=== PATIENT | male | born 1965 | race Caucasian/White ===

== ENCOUNTER 2023-05-24 09:33 | Outpatient (OUT) | payer OTHER, SELFPAY ==
[2023-05-24 10:16] LABS: Basophils Percent Auto 0.6 % (0.2-2.0); Eosinophils Absolute Auto 0.3 10^3/uL (0.0-0.7); Eosinophils Percent Auto 3.8 % (0.9-7.0); Hematocrit 43.4 % (42.0-54.0); Immature Granulocytes Abs Auto 0.03 10^3/uL (0.00-0.03); Immature Granulocytes Pct Auto 0.4 % (0.0-0.5); Lymphocytes Percent Auto 29.1 % (20.5-60.0); Mean Corpuscular HGB Conc 34.6 g/dL (29.9-35.2); Mean Corpuscular Hemoglobin 31.2 pg (25.9-34.0); Mean Corpuscular Volume 90.2 fL (80.0-94.0); Mean Platelet Volume 9.6 fL (9.5-13.5); Monocytes Absolute Auto 0.6 10^3/uL (0.3-0.8); Monocytes Percent Auto 8.7 % (1.7-12.0); Neutrophils Absolute Auto 3.9 10^3/uL (1.4-6.5); Neutrophils Percent Auto 57.4 % (43.0-75.0); Platelet Count 228 10^3/uL (150-450); Red Blood Count 4.81 10^6/uL (4.70-6.10); Red Cell Distribution Width 11.9 % (11.0-15.0); White Blood Count 6.8 10^3/uL (4.0-11.0)
[2023-05-24 11:11] LABS: Alanine Aminotransferase 31 U/L (16-63); Albumin Globulin Ratio 1.1; Albumin Level 3.8 g/dL (3.4-5.0); Alkaline Phosphatase 58 U/L (46-116); Anion Gap 10.1; Aspartate Amino Transferase 22 U/L (15-37); BUN Creatinine Ratio 16.2; Bilirubin Total 0.8 mg/dL (0.2-1.0); Calcium 8.8 mg/dL (8.5-10.1); Carbon Dioxide 30.1 mmol/L (21.0-32.0); Chloride 102 mmol/L (98-107); Chol HDL Ratio 2.1; Cholesterol 175 mg/dL (<=200); Estimated GFR (African America >60 (>=60); Estimated GFR (Non-African Ame >60 (>=60); Free T3 2.88 pg/mL (2.18-3.98); Globulin 3.5 g/dL; Glucose 101 mg/dL (74-106); HDL Cholesterol 82 mg/dL (40-60); Potassium 4.2 mmol/L (3.5-5.1); Sodium 138 mmol/L (136-145); Thyroid Stimulating Hormone 2.426 uIU/mL (0.358-3.740); Total Protein 7.3 g/dL (6.4-8.2); Triglycerides 58 mg/dL (<=150); VLDL CHOLESTEROL 11.6 mg/dL
[2023-05-24 11:16] LABS: Prostate Specific Antigen Scrn 1.07 ng/mL (<=4.00)
[2023-05-24 11:19] LABS: Estimated Average Glucose 105 mg/dL; Glycohemoglobin A1C 5.3 % (4.5-6.2)
== END 2023-05-24 09:34 | disposition home or self-care (01) ==
LOC: LAB 09:36
PROVIDERS: PCP Family Medicine; Visit Provider Family Medicine
DX: Z00.00 Encounter for general adult medical examination without abnormal findings (principal)
CPT/HCPCS: 36415; 80053; 80061; 83036; 84436; 84443; 84481; 85025; G0103

== ENCOUNTER 2024-05-05 20:42 | Outpatient (OUT) | payer OTHER, SELFPAY ==
--- OUTSIDE RECORDS SUMMARY | 2024-05-05 20:45 | XMS_ITS | CCD ---
Author Organization [facility] Care Team Providers Care Staffing Coordinator Name Role Phone Vipul Hein Attending Unavailable CHRISTEN DUBOSE Consulting Unava ilable Seamus Cardenas Primary Care Unavailable Seamus Cardenas Primary Care Provider SEAMUS CARDENAS Referring Unavailable SEAMUS CARDENAS Primary Care Unavailable DR SEAMUS CARDENAS Primary Care Unavailable RONALD, DR WAY Admitting Unavailable RONALD, DR WAY Attending Unavailable RONALD, DR WAY Consulting Unavailable Aditi García Consulting Unavailable DR SEAMUS CARDENAS Primary Care Unavailable RONALD, DR WAY Admitting Unavailable RONALD, DR WAY Attending Unavailable RONALD, DR WAY Consulting Unavailable Allergies Allergy Classification Reported Allergen(s) Allergy Type Date of Onset Reaction(s) Facility (1 source) Penicillin Drug Allergy [facility] Repository Problems Active Problems Problem Classification Problem Date Documented Da te Episodic/Chronic Other screening for suspected conditions (not mental disorders or infectious disease) (1 source) Encounter for screening for malignant neoplasm of prostate; Translations: [ENC SCREEN MALIG NEOPLASM PROSTATE] Onset: 09-06-2021 Episodic Past or Other Problems Problem Classification Problem Date Documented Da te Episodic/Chronic Superficial injury; contusion (4 sources) Contusion of left upper arm, initial encounter; Translations: [CONTUSION LEFT UPPER ARM INITIAL] Onset: 04-26-2021 Episodic Results Test Name Value Interpretation Reference Range Facility INSULINon 09-01-2021 Insulin 4.5 uIU/mL Normal 2.6-24.9 [facility] Comment on above: Performed By: #### I NSULIN #### [facility] [address] [address] [address] Pamella Barrientos CBC AUTO DIFFon 08-31-2021 BASO # 0.1 103/ul Normal 0.0-0.1 [facility] Comment on above: Performed By: #### C BC #### [facility] [address] [address] [address] Pamella Barrientos Basophils/100 WBC (Bld) 0.8 % Normal 0.2-2.0 [facility] Comment on above: Performed By: #### C BC #### [facility] [address] [address] [address] Pamella Barrientos EO # 0.1 103/ul Normal 0.0-0.[address] [facility] Comment on above: Performed By: #### C BC #### [facility] [address] [address] [address] Pamella Barrientos Eosinophils/100 WBC (Bld) 2.3 % Normal 0.9-7.0 [facility] Comment on above: Performed By: #### C BC #### [facility] [address] [place] [address] Dr. Pamella Barrientos Erythrocyte distribution width (RBC) [Ratio] 11.8 % Normal 11.0-15.0 [facility] Comment on above: Performed By: #### C BC #### [facility] [address] [place] [address] Dr. Pamella Barrientos Hematocrit (Bld) [Volume fraction] 42.7 % Normal 42.0-54.0 [facility] Comment on above: Performed By: #### C BC #### [facility] [address] [place] [address] Dr. Pamella Barrientos Hemoglobin (Bld) [Mass/Vol] 14.7 g/dL Normal 14.0-18.0 [facility] Comment on above: Performed By: #### C BC #### [facility] [address] [place] [address] Dr. Pamella Barrientos IG # 0.03 10e3/ul Normal 0.00-0.03 [facility] Comment on above: Performed By: #### C BC #### [facility] [address] [place] [address] Dr. Pamella Barrientos IG % 0.5 % Normal 0.0-0.5 [facility] Comment on above: Performed By: #### C BC #### [facility] [address] [place] [address] Dr. Pamella Barrientos LYMPH # 2.1 103/ul Normal 1.2-3.8 [facility] Comment on above: Performed By: #### C BC #### [facility] [address] [place] [address] Dr. Pamella Barrientos Lymphocytes/100 WBC (Bld) 34.1 % Normal 20.5-60.0 [facility] Comment on above: Performed By: #### C BC #### [facility] [address] [place] [address] Dr. Pamella aBrrientos MANUAL DIFF REQ NO Normal [facility] Comment on above: Performed By: #### C BC #### [facility] [address] [place] [address] Dr. Pamella Barrientos MCH (RBC) [Entitic mass] 30.7 pg Normal 25.9-34.0 [facility] Comment on above: Performed By: #### C BC #### [facility] [address] [place] [address] Dr. Pamella Barrientos MCHC (RBC) [Mass/Vol] 34.4 g/dL Normal 29.9-35.2 [facility] Comment on above: Performed By: #### C BC #### [facility] [address] [place] [address] Dr. Pamella Barrientos MCV (RBC) [Entitic vol] 89.1 fL Normal 80.0-94.0 [facility] Comment on above: Performed By: #### C BC #### [facility] [address] [place] [address] Dr. Pamella Barrientos MONO # 0.5 103/ul Normal 0.3-0.8 [facility] Comment on above: Performed By: #### C BC #### [facility] [address] [place] [address] Dr. Pamella Barrientos Monocytes/100 WBC (Bld) 8.3 % Normal 1.7-12.0 [facility] Comment on above: Performed By: #### C BC #### [facility] [address] [address] [address] Pamella Barrientos NEUT # 3.2 103/ul Normal 1.4-6.5 [facility] Comment on above: Performed By: #### C BC #### [facility] [address] [address] [address] Pamella Barrientos Neutrophils/100 WBC (Bld) 54.0 % Normal 43.0-75.0 [facility] Comment on above: Performed By: #### C BC #### [facility] [address] [address] [address] Pamella Barrientos Platelet mean volume (Bld) [Entitic vol] 9.4 fL Critically low 9.5-13.5 [facility] Comment on above: Performed By: #### C BC #### [facility] [address] [place] [address] Dr. Pamella Barrientos PLT 180 103/ul Normal 150-[address] [facility] Comment on above: Performed By: #### C BC #### [facility] [address] [place] [address] Dr. Pamella Barrientos RBC 4.79 106/ul Normal 4.70-6.10 [facility] Comment on above: Performed By: #### C BC #### [facility] [address] [place] [address] Dr. Pamlela Barrientos WBC 6.0 103/ul Normal 4.0-11.0 [facility] Comment on above: Performed By: #### C BC #### [facility] [address] [place] [address] Dr. Pamella Barrientos GLYCOHEMOGLOBIN A1Con 2021 ADA RECOMMENDATION SEE BELOW Normal [facility] Comment on above: Result Comment: ADA RECOMMENDED LIMIT 4.0 - 6.0 ADA THERAPEUTIC TARGET < 7.0 ACTION SUGGESTED > 7.0 Performed By: #### A 1C #### [facility] [address] [place] [address] Dr. Pamella Barrientos Glucose [Mass/Vol] 108 mg/dL Normal [facility] Comment on above: Performed By: #### A 1C #### [facility] [address] [address] [address] Pamella Barrientos HbA1c (Bld) [Mass fraction] 5.4 % Normal 4.5-6.2 [facility] Comment on above: Performed By: #### A 1C #### [facility] [address] [address] [address] Pamella Barrientos LIPID PROFILEon 08-31-2021 CHOL-HDL RATIO NORM SEE BELOW Normal [facility] Comment on above: Result Comment: 3.3 - 4.4 LOW RISK 4.4 - 7.1 AVERAGE RISK 7.1 - 11.0 MODERATE RISK >11.0 HIGH RISK Performed By: #### L IPID, CMP #### [facility] [address] [address] [address] Pamella Barrientos Cholesterol [Mass/Vol] 166 mg/dL Normal <=200 [facility] Comment on above: Performed By: #### L IPID, CMP #### [facility] [address] [address] [address] Pamella Barrientos Cholesterol in HDL [Mass/Vol] 83 mg/dL Critically high 40-60 [facility] Comment on above: Performed By: #### L IPID, CMP #### [facility] [address] [address] [address] Pamella Barrientos Cholesterol in LDL [Mass/Vol] 74.4 mg/dL Normal [facility] Comment on above: Performed By: #### L IPID, CMP #### [facility] [address] [address] [address] Pamella Barrientos Cholesterol.total/Ch olesterol in HDL [Mass ratio] 2.0 {ratio} Normal [facility] Comment on above: Performed By: #### L IPID, CMP #### [facility] [address] [address] [address] Pamella Barrientos HDL NORMAL > or = 60 mg/dl - LO W CARDIOVASCULAR RISK <40 mg/dl - HIGH CARDIOVASCULAR RISK Normal [facility] Comment on above: Performed By: #### L IPID, CMP #### [facility] [address] [address] [address] Pamella Barrientos LDL CALC NORMAL SEE BELOW Normal [facility] Comment on above: Result Comment: <100 mg/dl OPTIMAL 100 - 129 mg/dl NEAR OR ABOVE OPTIMAL 130 - 159 mg/dl BORDERLINE HIGH 160 - 189 mg/dl HIGH >190 mg/dl VERY HIGH Performed By: #### L IPID, CMP #### [facility] [address] [address] [address] Pamella Barrientos Triglyceride [Mass/Vol] 43 mg/dL Normal <=150 [facility] Comment on above: Performed By: #### L IPID, CMP #### [facility] [address] [address] [address] Pamella Barrientos VLDL CALC 8.6 mg/dL Normal [facility] Comment on above: Performed By: #### L IPID, CMP #### [facility] [address] [place] [address] Dr. Pamella Barrientos PROF 14(COMP METB)on 022 Albumin [Mass/Vol] 4.0 g/dL Normal 3.4-5.0 [facility] Comment on above: Performed By: #### L IPID, CMP #### [facility] [address] [place] [address] Dr. Pamella Barrientos Albumin/Globulin [Mass ratio] 1.3 {ratio} Normal [facility] Comment on above: Performed By: #### L IPID, CMP #### [facility] [address] [place] [address] Dr. Pamella Barrientos ALP [Catalytic activity/Vol] 60 U/L Normal 46-[address] [facility] Comment on above: Performed By: #### L IPID, CMP #### [facility] [address] [address] [address] Pamella Barrientos ALT [Catalytic activity/Vol] 38 U/L Normal 16-63 [facility] Comment on above: Performed By: #### L IPID, CMP #### [facility] [address] [place] [address] Dr. Pamella Barrientos Anion gap [Moles/Vol] 12.8 mmol/L Normal [facility] Comment on above: Performed By: #### L IPID, CMP #### [facility] [address] [address] [address] Pamella Barrientos AST [Catalytic activity/Vol] 20 U/L Normal 15-37 [facility] Comment on above: Performed By: #### L IPID, CMP #### [facility] [address] [place] [address] Dr. Pamella Barrientos Bilirubin [Mass/Vol] 0.7 mg/dL Normal 0.2-1.0 [facility] Comment on above: Performed By: #### L IPID, CMP #### [facility] [address] [place] [address] Dr. Pamella Barrientos Calcium [Mass/Vol] 8.8 mg/dL Normal 8.5-10.1 [facility] Comment on above: Performed By: #### L IPID, CMP #### [facility] [address] [place] [address] Dr. Pamella Barrientos Chloride [Moles/Vol] 102 mmol/L Normal 98-107 [facility] Comment on above: Performed By: #### L IPID, CMP #### [facility] [address] [place] [address] Dr. Pamella Barrientos CO2 [Moles/Vol] 26.6 mmol/L Normal 21.0-32.0 [facility] Comment on above: Performed By: #### L IPID, CMP #### [facility] [address] [place] [address] Dr. Pamella Barrientos Creatinine [Mass/Vol] 0.97 mg/dL Normal 0.70-1.30 [facility] Comment on above: Performed By: #### L IPID, CMP #### [facility] [address] [place] [address] Dr. Pamella Barrientos EGFR-AF KENYAN >60 Normal >=60 [facility] Comment on above: Performed By: #### L IPID, CMP #### [facility] [address] [place] [address] Dr. Pamella Barrientos EGFR-NON AF KENYAN >60 Normal >=60 [facility] Comment on above: Performed By: #### L IPID, CMP #### [facility] [address] [address] [address] Pamella Barrientos Globulin (S) [Mass/Vol] 3.1 g/dL Normal [facility] Comment on above: Performed By: #### L IPID, CMP #### [facility] [address] [place] [address] Dr. Pamella Barrientos Glucose [Mass/Vol] 98 mg/dL Normal 74-106 [facility] Comment on above: Performed By: #### L IPID, CMP #### [facility] [address] [place] [address] Dr. Pamella Barrientos Potassium [Moles/Vol] 4.4 mmol/L Normal 3.5-5.1 [facility] Comment on above: Performed By: #### L IPID, CMP #### [facility] [address] [place] [address] Dr. Pamella Barrientos Protein [Mass/Vol] 7.1 g/dL Normal 6.4-8.2 [facility] Comment on above: Performed By: #### L IPID, CMP #### [facility] [address] [place] [address] Dr. Pamella Barrientos Sodium [Moles/Vol] 137 mmol/L Normal 136-145 [facility] Comment on above: Performed By: #### L IPID, CMP #### [facility] [address] [place] [address] Dr. Pamella Barrientos Urea nitrogen [Mass/Vol] 20.0 mg/dL Critically high 7.0-18.0 [facility] Comment on above: Performed By: #### L IPID, CMP #### [facility] [address] [place] [address] Dr. Pamella Barrientos Urea nitrogen/Creatinine [Mass ratio] 20.6 mg/mg Normal [facility] Comment on above: Performed By: #### L IPID, CMP #### [facility] [address] [place] [address] Dr. Pamella Barrientos XR WRIST LT MIN 3 Von 2021 XR WRIST LT MIN 3 V EXAM: XR FOREARM LT 2 VIEWS, XR HAND LT MIN 3V, XR WRIST LT MIN 3 V HISTORY: Contusion of left upper arm COMPARISON: None. TECHNIQUE: 2 views of the left forearm, 3 views of the left hand and 3 views of the left wrist were obtained. FINDINGS: LEFT FOREARM: AP and lateral views of the left forearm were acquired. The bones are intact. There is no evidence of acute fracture or subluxation. LEFT WRIST: There is joint space narrowing with marginal spurring at the triscaphe joint. No evidence of acute fracture or subluxation is noted. LEFT HAND: A BB marker is placed at the posterior medial aspect of the third and fourth fingers slightly proximal to the proximal interphalangeal joints. Deep to the marker I see mild soft tissue swelling. I do not see a radiopaque density other than the marker. No evidence of acute fracture or subluxation. IMPRESSION: 1. At the area of interest in the third and fourth fingers proximal to the proximal interphalangeal joints, no evidence of radiopaque foreign bodies other than the BB markers. No evidence of acute fracture or subluxation. 2. 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 Mild osteoarthritis at the interphalangeal joints of the fingers. Electronically authenticated by: ADITI GARCÍA Date: 2021-04-26 14:24 Normal [facility] [id number] 02-24-2020 SARS-CoV-2 Not Detected Normal Not Detected [facility] Comment on above: Result Comment: (NOT E) This nucleic acid amplification test was developed and its performance characteristics determined by [employer]. Nucleic acid amplification tests include PCR and TMA. This test has not been FDA cleared or approved. This test has been authorized by FDA under an Emergency Use Authorization (EUA). This test is only authorized for the duration of time the declaration that circumstances exist justifying the authorization of the emergency use of in vitro diagnostic tests for detection of SARS-CoV-2 virus and/or diagnosis of COVID-19 infection under section 564(b)(1) of the Act, 21 U.S.C. 360bbb-3(b) (1), unless the authorization is terminated or revoked sooner. When diagnostic testing is negative, the possibility of a false negative result should be considered in the context of a patient's recent exposures and the presence of clinical signs and symptoms consistent with COVID-19. An individual without symptoms of COVID- 19 and who is not shedding SARS-CoV-2 virus would expect to have a negative (not detected) result in this assay. Performed At: [facility] [address] [place] [id number] Seamus Garcia MD Ph:[phone] Performed By: #### A COV #### [facility] [address] [place] [address] Tax Collector: Farzad Soto MD MRI Shoulder w/o Contrast Me yeny 02-25-2019 MRI Shoulder w/o Contrast Right EXAM: MRI Shoulder w/o Contrast Right HISTORY: Right shoulder pain and muscle strain. COMPARISON: None. TECHNIQUE: Multiplanar and multisequence imaging of the right shoulder was performed without contrast. FINDINGS: There is moderate degenerative change of the acromioclavicular joint manifested by joint space narrowing, marginal osteophytes and capsular hypertrophy. There is a type II acromion. A small amount of subacromial and subdeltoid fluid is present. There is thickening and heterogeneous intermediate signal of the supraspinatus consistent with severe tendinopathy. A superimposed moderate grade partial thickness bursal sided tear involves the distal supraspinatus anteriorly at the insertion. The tear measures 7 mm in AP and transverse dimensions and involves approximately half of the width of the tendon. There is also articular sided fraying and a superimposed low to moderate grade partial thickness articular sided tear of the supraspinatus tracking distally from the level of the lateral margin of the acromion. This tear measures approximately 10 mm in AP and transverse dimensions. There is mild tendinopathy of the infraspinatus and subscapularis tendons with no additional rotator cuff tear. The long head of the biceps tendon is normally positioned in the bicipital groove. The biceps anchor is intact. There is intermediate signal and mild tendinopathy of the intra-articular portion of the biceps tendon. There appears to be a subtle tear of the posterior superior labrum. No paralabral cyst is evident. The glenohumeral alignment is anatomic. IMPRESSION: 1. There is severe tendinopathy of the supraspinatus with a moderate grade partial thickness bursal sided tear of the distal supraspinatus anteriorly measuring 7 mm in AP and transverse dimensions. 2. There is articular sided fraying and a superimposed low to moderate grade partial thickness articular sided tear of the supraspinatus tracking distally from the level of the acromion measuring approximately 10 mm in AP and transverse dimensions. 3. There is mild tendinopathy of the infraspinatus and subscapularis tendons with no additional rotator cuff tear. 4. Moderate degenerative change involves the acromioclavicular joint. 5. A small amount of subacromial and subdeltoid fluid is consistent with mild bursitis. 6. There is a small tear of the posterior superior labrum with no paralabral cyst. Final Dictated by: Lonny Hadley MD Dictated DT/TM: 02/25/2019 7:16 am Signed by: Lonny Hadley MD Signed (Electronic Signature): 02/25/2019 7:55 am Transcribed DT/TM: 02/25/2019 7:51 (If Report Is Signed, Electronically Signed in Other Vendor System) Normal [facility] Encounters Encounter Date Encounter Type Care Provider Facility Start: 09-06-2021 Encounter for genera l adult medical examination without abnormal findings DR SEAMUS CARDENAS [facility] Start: 08-31-2021 End: 09-01-[address] SEAMUS CARDENAS Facility:[facility] Start: 08-31-2021 End: 09-01-2021 Encounter for general adult medical examination without abnormal findings DR SEAMUS CARDENAS Facility:[facility] Start: 04-26-2021 End: 04-27-[address] SEAMUS CARDENAS Facility:[facility] Start: 02-21-2020 End: 02-22-2020 Patient encounter procedure SEAMUS CARDENAS [facility] Start: 02-21-2020 End: 02-21-2020 Subsequent hospital visit by physician Rey [facility] Scre[facility] Comment on above: Arrived Start: 02-24-2019 End: 02-25-2019 Patient encounter procedure Vipul Hein Facility:[facility] Procedures Date Procedure Procedure Detail Performing Clinician Start: 08-31-[address] BESSIE CARDENAS Comment on above: Performed By: #### P [facility] #### [facility] [address] [address] [address] Pamella Barrientos Start: 02-21-2020 COVID-19 AMBULATORY SCOTT BALBINA CARDENAS Plan of Treatment Date Care Activity Detail Author Start: 12-14-2019 Influenza vaccination Flu vaccine (# 1) [place], [place] Start: 2016 Screening for malign ant neoplasm of colon Colon cancer screen colonoscopy [place], [place] Start: 2016 Shingles Vaccine (1 of 2) Shingles Vaccine (1 of 2) [place] Start: 2006 Lipid panel Lipid screen [place], [place] Start: 1985 DTaP/Tdap/Td vaccine (1 - Tdap) DTaP/Tdap/Td vaccine (1 - Tdap) [place], [place] Start: 1981 HIV screening HIV screen [place], [place] End: 02-21-2020 Covid-19 Ambulatory Covid-19 Ambulatory Lab Routine Once for 1 Occurrences starting 02/21/2020 until 02/21/2020 [place] Comment on above: Once for 1 Occurrenc es starting 02/21/2020 until 02/21/2020 Covid-19 Ambulatory Covid-19 Amb ulatory Lab Routine 02/21/2020 3:32 PM EST [place] Payers Date Payer Category Payer Private Health Insurance 2014 Private Health Insurance [id number] 1966 Unknown [id number] 1966 Unknown [id number] 1966 Unknown [id number] 1966 Unknown [id number] 1959 Unknown [id number] Social History Date Type Detail Facility Tobacco smoking status NHIS Unknown if ev er smoked [facility] Sex Assigned At Not on file [facility] Summary Purpose Family History No Family History Records FoundNo Family History Records FoundNo Family History Records Found Advance Directives No Advanced Directives Records FoundNo Advanced Directives Records FoundNo Advanced Directives Records Found Additional Source Comments (unrecognized sect ion and content) No Status Records FoundNo Status Records FoundNo Status Records Found INFORMATION SOURCE (unrecogn ized section and content) DATE CREATED AUTHOR 02/25/2019 [facility] DATE CREATED AUTHOR AUTHOR'S ORGANIZ ATION 02/24/2020 [facility] DATE CREATED AUTHOR AUTHOR'S ORGANIZ ATION 09/07/2021 [facility] [facility] FOR RECORDS PERTAINING TO PATIENTS WHO ARE OR HAVE BEEN ENROLLED IN A CHEMICAL DEPENDENCY/SUBSTANCEABUSE PROGRAM, SOME INFORMATION MAY BE OMITTED. This clinical summary was aggregated from multiple sources. Caution should be exercised in using it in the provision of clinical care. This summary normalizes information from multiple sources, and as a consequence, information in this document may materially change the coding, format and clinical context of patient data. In addition, data may be omitted in some cases. CLINICAL DECISIONS SHOULD BE BASED ON THE PRIMARY CLINICAL RECORDS. [employer] provides no warranty or guarantee of the accuracy or completeness of information in this document.
== END 2024-05-05 20:43 | disposition home or self-care (01) ==
LOC: SLEEP 20:42
PROVIDERS: PCP Family Medicine; Visit Provider Family Medicine
DX: G47.33 Obstructive sleep apnea (adult) (pediatric) (principal)
CPT/HCPCS: 95810

== ENCOUNTER 2024-05-24 19:51 | Outpatient (OUT) | payer OTHER, SELFPAY ==
--- OUTSIDE RECORDS SUMMARY | 2024-05-24 19:54 | XMS_ITS | CCD ---
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 Role Phone Vipul Hein Attending Unavailable CHRISTEN DUBOSE Consulting Unava ilable Seamus Cardenas Primary Care Unavailable Seamus Cardenas Primary Care Provider SEAMUS CARDENAS Referring Unavailable SEAMUS CARDENAS Primary Care Unavailable DR SEAMUS CARDENAS Primary Care Unavailable RONALD, DR WAY Admitting Unavailable RONALD, DR WAY Attending Unavailable RONALD, DR WAY Consulting Unavailable Aditi Gracía Consulting Unavailable DR SEAMUS CARDENAS Primary Care Unavailable RONALD, DR WAY Admitting Unavailable RONALD, DR WAY Attending Unavailable RONALD, DR WAY Consulting Unavailable Allergies Allergy Classification Reported Allergen(s) Allergy Type Date of Onset Reaction(s) Facility (1 source) Penicillin Drug Allergy [facility] Repository Problems Active Problems Problem Classification [...] INSULINon 09-01-2021 Insulin 4.5 uIU/mL Normal 2.6-24.9 [facility] Comment on above: Performed By: #### I NSULIN #### [facility] [address] [address] [address] Pamella Barrientos CBC AUTO DIFFon 08-31-2021 BASO # 0.1 103/ul Normal 0.0-0.1 [facility] Comment on above: Performed By: #### C BC #### [facility] [address] [address] [address] Pamella Barrientos Basophils/100 WBC (Bld) 0.8 % Normal 0.2-2.0 [facility] Comment on above: Performed By: #### C BC #### [facility] [address] [address] [address] Pamella Barrientos EO # 0.1 103/ul Normal 0.0-0.7 [facility] Comment on above: Performed By: #### C BC #### [facility] [address] [address] [address] Pamella Barrientos Eosinophils/100 WBC (Bld) 2.3 % Normal 0.9-7.0 [facility] Comment on above: Performed By: #### C BC #### [facility] [address] [place] [address] Dr. Pamella Barrientso Erythrocyte distribution width (RBC) [Ratio] 11.8 % Normal 11.0-15.0 [facility] Comment on above: Performed By: #### C BC #### [facility] [address] [place] [address] Dr. Pamella Barrientos Hematocrit (Bld) [Volume fraction] 42.7 % Normal 42.0-54.0 [facility] Comment on above: Performed By: #### C BC #### [facility] [address] [place] [address] Dr. Pamella Barrientos Hemoglobin (Bld) [Mass/Vol] 14.7 g/dL Normal 14.0-18.0 [facility] Comment on above: Performed By: #### C BC #### [facility] [address] [place] [address] Dr. Pamella Barrientos IG # 0.03 10e3/ul Normal 0.00-0.03 [facility] Comment on above: Performed By: #### C BC #### [facility] [address] [place] [address] Dr. Pamella Barrientos IG % 0.5 % Normal 0.0-0.5 [facility] Comment on above: Performed By: #### C BC #### [facility] [address] [place] [address] Dr. Pmaella Barrientos LYMPH # 2.1 103/ul Normal 1.2-3.8 [facility] Comment on above: Performed By: #### C BC #### [facility] [address] [place] [address] Dr. Pamella Barrientos Lymphocytes/100 WBC (Bld) 34.1 % Normal 20.5-60.0 [facility] Comment on above: Performed By: #### C BC #### [facility] [address] [place] [address] Dr. Pamella Barrientos MANUAL DIFF REQ NO Normal [facility] Comment on above: Performed By: #### C BC #### [facility] [address] [place] [address] Dr. Pamella Barrientos MCH (RBC) [Entitic mass] 30.7 pg Normal 25.9-34.0 [facility] Comment on above: Performed By: #### C BC #### [facility] [address] [place] [address] Dr. Pamella Barrientos MCHC (RBC) [Mass/Vol] 34.4 g/dL Normal 29.9-35.2 [facility] Comment on above: Performed By: #### C BC #### [facility] [address] [place] [address] Dr. Pamella Barrientos MCV (RBC) [Entitic vol] 89.1 fL Normal 80.0-94.0 [facility] Comment on above: Performed By: #### C BC #### [facility] [address] [place] [address] Dr. Pamella Barrientos MONO # 0.5 103/ul Normal 0.3-0.8 [facility] Comment on above: Performed By: #### C BC #### [facility] [address] [place] [address] Dr. Pamella Barrientos Monocytes/100 WBC (Bld) 8.3 % Normal 1.7-12.0 [facility] Comment on above: Performed By: #### C BC #### [facility] [address] [address] [address] Pamella Barrientos NEUT # 3.2 103/ul Normal 1.4-6.5 [facility] Comment on above: Performed By: #### C BC #### [facility] [address] [address] [address] Pamella Barrientos Neutrophils/100 WBC (Bld) 54.0 % Normal 43.0-75.0 [facility] Comment on above: Performed By: #### C BC #### [facility] [address] [address] [address] Pamella Barrientos Platelet mean volume (Bld) [Entitic vol] 9.4 fL Critically low 9.5-13.5 [facility] Comment on above: Performed By: #### C BC #### [facility] [address] [place] [address] Dr. Pamella Barrientos PLT 180 103/ul Normal 150-450 [facility] Comment on above: Performed By: #### C BC #### [facility] [address] [place] [address] Dr. Pamella Barrientos RBC 4.79 106/ul Normal 4.70-6.10 [facility] Comment on above: Performed By: #### C BC #### [facility] [address] [place] [address] Dr. Pamella Barrientos WBC 6.0 103/ul Normal 4.0-11.0 [facility] Comment on above: Performed By: #### C BC #### [facility] [address] [place] [address] Dr. Pamella Barrientos GLYCOHEMOGLOBIN A1Con 2021 ADA RECOMMENDATION SEE BELOW Normal [facility] Comment on above: Result Comment: ADA RECOMMENDED LIMIT 4.0 - 6.0 ADA THERAPEUTIC TARGET < 7.0 ACTION SUGGESTED > 7.0 Performed By: #### A 1C #### [facility] [address] [place] [address] Dr. Pamella Barrientos Glucose [Mass/Vol] 108 mg/dL Normal [facility] Comment on above: Performed By: #### A 1C #### [facility] [address] [address] [address] Pamella Barrientos HbA1c (Bld) [Mass fraction] 5.4 % Normal 4.5-6.2 [facility] Comment on above: Performed By: #### A 1C #### [facility] [address] [address] [address] Pamella Barrientos LIPID PROFILEon 08-31-2021 CHOL-HDL RATIO NORM SEE BELOW Normal [facility] Comment on above: Result Comment: 3.3 - 4.4 LOW RISK 4.4 - 7.1 AVERAGE RISK 7.1 - 11.0 MODERATE RISK >11.0 HIGH RISK Performed By: #### L IPID, CMP #### [facility] [address] [address] [address] Pamella Barrientos Cholesterol [Mass/Vol] 166 mg/dL Normal <=200 [facility] Comment on above: Performed By: #### L IPID, CMP #### [facility] [address] [address] [address] Pamella Barrientos Cholesterol in HDL [Mass/Vol] 83 mg/dL Critically high 40-60 [facility] Comment on above: Performed By: #### L IPID, CMP #### [facility] [address] [address] [address] Pamella Barrientos Cholesterol in LDL [Mass/Vol] 74.4 mg/dL Normal [facility] Comment on above: Performed By: #### L IPID, CMP #### [facility] [address] [address] [address] Pamella Barrientos Cholesterol.total/Ch olesterol in HDL [Mass ratio] 2.0 {ratio} Normal [facility] Comment on above: Performed By: #### L IPID, CMP #### [facility] [address] [address] [address] Pamella Barrientos HDL NORMAL > or = 60 mg/dl - LO W CARDIOVASCULAR RISK <40 mg/dl - HIGH CARDIOVASCULAR RISK Normal [facility] Comment on above: Performed By: #### L IPID, CMP #### [facility] [address] [address] [address] Pamella Barrientos LDL CALC NORMAL SEE BELOW Normal [facility] Comment on above: Result Comment: <100 mg/dl OPTIMAL 100 - 129 mg/dl NEAR OR ABOVE OPTIMAL 130 - 159 mg/dl BORDERLINE HIGH 160 - 189 mg/dl HIGH >190 mg/dl VERY HIGH Performed By: #### L IPID, CMP #### [facility] [address] [address] [address] Pamella Barrientos Triglyceride [Mass/Vol] 43 mg/dL Normal <=150 [facility] Comment on above: Performed By: #### L IPID, CMP #### [facility] [address] [address] [address] Pamella Barrientos VLDL CALC 8.6 mg/dL Normal [facility] Comment on above: Performed By: #### L IPID, CMP #### [facility] [address] [place] [address] Dr. Pamella Barrientos PROF 14(COMP METB)on 022 Albumin [Mass/Vol] 4.0 g/dL Normal 3.4-5.0 [facility] Comment on above: Performed By: #### L IPID, CMP #### [facility] [address] [place] [address] Dr. Pamella Barrientos Albumin/Globulin [Mass ratio] 1.3 {ratio} Normal [facility] Comment on above: Performed By: #### L IPID, CMP #### [facility] [address] [place] [address] Dr. Pamella Barrientos ALP [Catalytic activity/Vol] 60 U/L Normal 46-116 [facility] Comment on above: Performed By: #### L IPID, CMP #### [facility] [address] [address] [address] Pamella Barrientos ALT [Catalytic activity/Vol] 38 U/L Normal 16-63 [facility] Comment on above: Performed By: #### L IPID, CMP #### [facility] [address] [place] [address] Dr. Pamella Barrientos Anion gap [Moles/Vol] 12.8 mmol/L Normal [facility] Comment on above: Performed By: #### L IPID, CMP #### [facility] [address] [address] [address] Pamella Barrientos AST [Catalytic activity/Vol] 20 U/L Normal 15-37 [facility] Comment on above: Performed By: #### L IPID, CMP #### [facility] [address] [place] [address] Dr. Pamella Barrientos Bilirubin [Mass/Vol] 0.7 mg/dL Normal 0.2-1.0 [facility] Comment on above: Performed By: #### L IPID, CMP #### [facility] [address] [place] [address] Dr. Pamella Barrientos Calcium [Mass/Vol] 8.8 mg/dL Normal 8.5-10.1 [facility] Comment on above: Performed By: #### L IPID, CMP #### [facility] [address] [place] [address] Dr. Pamella Barrientos Chloride [Moles/Vol] 102 mmol/L Normal 98-107 [facility] Comment on above: Performed By: #### L IPID, CMP #### [facility] [address] [place] [address] Dr. Pamella Barrientos CO2 [Moles/Vol] 26.6 mmol/L Normal 21.0-32.0 [facility] Comment on above: Performed By: #### L IPID, CMP #### [facility] [address] [place] [address] Dr. Pamella Barrientos Creatinine [Mass/Vol] 0.97 mg/dL Normal 0.70-1.30 [facility] Comment on above: Performed By: #### L IPID, CMP #### [facility] [address] [place] [address] Dr. Pamella Barrientos EGFR-AF MALTESE >60 Normal >=60 [facility] Comment on above: Performed By: #### L IPID, CMP #### [facility] [address] [place] [address] Dr. Pamella Barrientos EGFR-NON AF MALTESE >60 Normal >=60 [facility] Comment on above: Performed By: #### L IPID, CMP #### [facility] [address] [address] [address] Pamella Barrientos Globulin (S) [Mass/Vol] 3.1 g/dL Normal [facility] Comment on above: Performed By: #### L IPID, CMP #### [facility] [address] [place] [address] Dr. Pamella Barrientos Glucose [Mass/Vol] 98 mg/dL Normal 74-106 [facility] Comment on above: Performed By: #### L IPID, CMP #### [facility] [address] [place] [address] Dr. Pamella Barrientos Potassium [Moles/Vol] 4.4 mmol/L Normal 3.5-5.1 [facility] Comment on above: Performed By: #### L IPID, CMP #### [facility] [address] [place] [address] Dr. Pamella Barrientos Protein [Mass/Vol] 7.1 g/dL Normal 6.4-8.2 [facility] Comment on above: Performed By: #### L IPID, CMP #### [facility] [address] [place] [address] Dr. Pamella Barrientos Sodium [Moles/Vol] 137 mmol/L Normal 136-145 [facility] Comment on above: Performed By: #### L IPID, CMP #### [facility] [address] [place] [address] Dr. Pamella Barrientos Urea nitrogen [Mass/Vol] 20.0 mg/dL Critically high 7.0-18.0 [facility] Comment on above: Performed By: #### L IPID, CMP #### [facility] [address] [place] [address] Dr. Pamella Barrientos Urea nitrogen/Creatinine [Mass ratio] 20.6 mg/mg Normal [facility] Comment on above: Performed By: #### L IPID, CMP #### [facility] [address] [place] [address] Dr. Pamella Barrientos XR WRIST LT MIN [...] by: ADITI GARCÍA Date: 2021-04-26 14:24 Normal [facility] [id number] 02-24-2020 SARS-CoV-2 Not Detected Normal Not Detected [facility] Comment on above: Result Comment: (NOT E) This nucleic acid amplification test was developed and its performance characteristics determined by [employer]. Nucleic acid amplification tests include PCR and [...] detected) result in this assay. Performed At: [facility] [address] [facility] [place] [id number] Seamus Garcia MD Ph:[phone] Performed By: #### A COV #### [facility] [address] [place] [address] Service Delivery Supervisor: Farzad Soto MD MRI Shoulder w/o Contrast Sd yeny 02-25-2019 MRI Shoulder w/o Contrast Right [...] Electronically Signed in Other Vendor System) Normal [facility] Encounters Encounter Date Encounter Type Care Provider Facility Start: 09-06-2021 Encounter for genera l adult medical examination without abnormal findings DR SEAMUS CARDENAS [facility] Start: 08-31-2021 End: 09-01-[address] SEAMUS CARDENAS Facility:[facility] Start: 08-31-2021 End: 09-01-2021 Encounter for general adult medical examination without abnormal findings DR SEAMUS CARDENAS Facility:[facility] Start: 04-26-2021 End: 04-27-[address] SEAMUS CARDENAS Facility:[facility] Start: 02-21-2020 End: 02-22-2020 Patient encounter procedure SEAMUS CARDENAS [facility] Start: 02-21-2020 End: 02-21-2020 Subsequent hospital visit by physician Rey Cov[facility] Scre[facility] Comment on above: Arrived Start: 02-24-2019 End: 02-25-2019 Patient encounter procedure Vipul Hein Facility:[facility] Procedures Date Procedure Procedure Detail Performing Clinician Start: 08-31-[address] BESSIE CARDENAS Comment on above: Performed By: #### P [facility] #### [facility] [address] [address] [address] Pamella Barrientos Start: 02-21-2020 COVID-19 AMBULATORY SCOTT BALBINA CARDENAS Plan of Treatment Date Care Activity Detail Author Start: 12-14-2019 Influenza vaccination Flu vaccine (# 1) [place], [place] Start: 2016 Screening for malign ant neoplasm of colon Colon cancer screen colonoscopy [place], [place] Start: 2016 Shingles Vaccine (1 of 2) Shingles Vaccine (1 of 2) [place] Start: 2006 Lipid panel Lipid screen [place], [place] Start: 1985 DTaP/Tdap/Td vaccine (1 - Tdap) DTaP/Tdap/Td vaccine (1 - Tdap) [place], [place] Start: 1981 HIV screening HIV screen [place], [place] End: 02-21-2020 Covid-19 Ambulatory Covid-19 Ambulatory Lab Routine Once for 1 Occurrences starting 02/21/2020 until 02/21/2020 [place] Comment on above: Once for 1 Occurrenc es starting 02/21/2020 until 02/21/2020 Covid-19 Ambulatory Covid-19 Amb ulatory Lab Routine 02/21/2020 3:32 PM EST [place], [place] Payers Date Payer Category Payer Private Health Insurance 2014 Private Health Insurance [id number] 1966 Unknown [id number] 1966 Unknown [id number] 1966 Unknown [id number] 1966 Unknown [id number] 1959 Unknown [id number] Social History Date Type Detail Facility Tobacco smoking status NHIS Unknown if ev er smoked [facility] Sex Assigned At Not on file [facility] Summary Purpose Family History No Family History Records FoundNo Family History Records FoundNo Family History Records Found Advance Directives No Advanced Directives Records FoundNo Advanced Directives Records FoundNo Advanced Directives Records Found Additional Source Comments (unrecognized sect ion and content) No Status Records FoundNo Status Records FoundNo Status Records Found INFORMATION SOURCE (unrecogn ized section and content) DATE CREATED AUTHOR 02/25/2019 [facility] DATE CREATED AUTHOR AUTHOR'S ORGANIZ ATION 02/24/2020 [facility]ital DATE CREATED AUTHOR AUTHOR'S ORGANIZ ATION 09/07/2021 [facility] pital FOR RECORDS PERTAINING TO PATIENTS WHO [...] BE BASED ON THE PRIMARY CLINICAL RECORDS. [email or web address] provides no warranty or guarantee of the accuracy or completeness of information in this document.
== END 2024-05-24 19:52 | disposition home or self-care (01) ==
LOC: SLEEP 19:52
PROVIDERS: PCP Family Medicine; Visit Provider Family Medicine
DX: G47.33 Obstructive sleep apnea (adult) (pediatric) (principal)
CPT/HCPCS: 95811

== ENCOUNTER 2024-08-20 10:11 | Outpatient (OUT) | payer OTHER, SELFPAY ==
[2024-08-20 10:42] LABS: Basophils Percent Auto 0.2 % (0.2-2.0); Eosinophils Percent Auto 0.1 % (0.9-7.0); Hematocrit 44.9 % (42.0-54.0); Hemoglobin 16.2 g/dL (14.0-18.0); Immature Granulocytes Abs Auto 0.24 10^3/uL (0.00-0.03); Immature Granulocytes Pct Auto 1.5 % (0.0-0.5); Lymphocytes Absolute Auto 3.1 10^3/uL (1.2-3.8); Lymphocytes Percent Auto 18.7 % (20.5-60.0); Mean Corpuscular HGB Conc 36.1 g/dL (29.9-35.2); Mean Corpuscular Hemoglobin 31.6 pg (25.9-34.0); Mean Corpuscular Volume 87.5 fL (80.0-94.0); Mean Platelet Volume 9.3 fL (9.5-13.5); Monocytes Absolute Auto 1.4 10^3/uL (0.3-0.8); Monocytes Percent Auto 8.4 % (1.7-12.0); Neutrophils Absolute Auto 11.8 10^3/uL (1.4-6.5); Neutrophils Percent Auto 71.1 % (43.0-75.0); Platelet Count 290 10^3/uL (150-450); Red Blood Count 5.13 10^6/uL (4.70-6.10); White Blood Count 16.6 10^3/uL (4.0-11.0)
[2024-08-20 11:06] LABS: Erythrocyte Sedimentation Rate 8 mm/hr (<=20)
[2024-08-20 11:57] LABS: Alanine Aminotransferase 28 U/L (16-63); Albumin Globulin Ratio 1.2; Albumin Level 3.7 g/dL (3.4-5.0); Alkaline Phosphatase 59 U/L (46-116); Anion Gap 11.3; Aspartate Amino Transferase 16 U/L (15-37); BUN Creatinine Ratio 24.5; Bilirubin Total 0.6 mg/dL (0.2-1.0); Calcium 8.9 mg/dL (8.5-10.1); Carbon Dioxide 26.4 mmol/L (21.0-32.0); Chloride 101 mmol/L (98-107); Estimated GFR (African America >60 (>=60 mL/min/1.73m^2); Estimated GFR (Non-African Ame >60 (>=60 mL/min/1.73m^2); Free T3 3.41 pg/mL (2.18-3.98); Globulin 3.2 g/dL; Glucose 100 mg/dL (74-106); Potassium 3.7 mmol/L (3.5-5.1); Sodium 135 mmol/L (136-145); Total Protein 6.9 g/dL (6.4-8.2); Uric Acid 3.8 mg/dL (3.5-7.2)
[2024-08-20 11:58] LABS: C Reactive Protein <0.50 mg/dL (<=0.50)
[2024-08-20 14:13] LABS: Creatine Kinase 109 U/L (39-308)
[2024-08-21 06:08] LABS: Rheumatoid Factor (RF) <10.0 IU/mL (<14.0)
[2024-08-25 11:08] LABS: Antinuclear Antibodies, IFA Negative (.)
== END 2024-08-20 10:12 | disposition home or self-care (01) ==
LOC: LAB 10:12
PROVIDERS: PCP Family Medicine; Visit Provider Family Medicine
DX: M79.10 Myalgia, unspecified site (principal); I10 Essential (primary) hypertension; E03.9 Hypothyroidism, unspecified; R53.83 Other fatigue
CPT/HCPCS: 36415; 80053; 82550; 84436; 84443; 84481; 84550; 85025; 85652; 86038; 86060; 86140; 86431

== ENCOUNTER 2024-08-23 08:25 | Emergency (ER) | payer OTHER, SELFPAY ==
[2024-08-23 08:32] VITALS: BP 189/101; PULSE 55; TEMP 36.4; O2SAT 99; BMI 25.1
--- OUTSIDE RECORDS SUMMARY | 2024-08-23 08:36 | XMS_ITS | CCD ---
Author Organization [facility] Inform ion Partnership [facility] Care Team Providers Care Enginehouse Brakeman Name Role Phone Vipul Hein Attending Unavailable CHRISTEN DUBOSE Consulting Unava ilable Seamus Gage Primary Care Unavailable Seamus Gage Primary Care Provider [phone] SEAMUS GAGE Referring Unavailable SEAMUS GAGE Primary Care Unavailable DR SEAMUS GAGE Primary Care Unavailable RONALD, DR WAY Admitting Unavailable RONALD, DR WAY Attending Unavailable RONALD, DR WAY Consulting Unavailable Aditi Torre Consulting Unavailable RONALD, DR WAY Primary Care Unavailable RONALD, DR WAY Admitting Unavailable RONALD, DR WAY Attending Unavailable RONALD, DR WAY Consulting Unavailable MCKENZIE BRYAN Attending Unavailable SEAMUS GAGE Primary Care Unavailable OTTO VIRGEN Admitting Unavailable JANNETH MADRIGAL Attending Unavailable Allergies Allergy Classification Reported Allergen(s) Allergy Type Date of Onset Reaction(s) Facility (1 source) Penicillin Drug Allergy [facility] Repository Problems Active Problems Problem Classification Problem Date Documented Da te Episodic/Chronic Other circulatory disease (1 source) Elevated blood-pressure reading, without diagnosis of hypertension; Translations: [Elevated blood pressure reading without diagnosis of hypertension] Onset: 08-21-2024 Episodic Other connective tissue disease (1 source) Myalgia, unspecified site; Translations: [Myalgias] Onset: 08-16-2024 Episodic Other nervous system disorders (1 source) Paresthesia of skin; Translations: [Paresthesias] Onset: 08-21-2024 Episodic Other nervous system disorders (1 source) Personal history of other diseases of the nervous system and sense organs; 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] Onset: 08-21-2024 Episodic Other screening for suspected conditions (not mental disorders or infectious disease) (1 source) Encounter for screening for malignant neoplasm of prostate; Translations: [ENC SCREEN MALIG NEOPLASM PROSTATE] Onset: 09-06-2021 Episodic Other upper respiratory infections (1 source) Acute upper respiratory infection, unspecified; Translations: [Upper respiratory tract infection, unspecified type] Onset: 08-16-2024 Episodic Past or Other Problems Problem Classification Problem Date Documented Da te Episodic/Chronic Superficial injury; contusion (4 sources) Contusion of left upper arm, initial encounter; Translations: [CONTUSION LEFT UPPER ARM INITIAL] Onset: 04-26-2021 Episodic Results Test Name Value Interpretation Reference Range Facil ity ALLIED HEALTHon 08-22-2024 ALLIED HEALTH HNO ID: [id number] Author: MARGAUX TAVARES RT(R) Service: Radiology Author Type: Technologist Type: Allied Health Filed: 08/22/2024 02:50 Note Text: Radiology Service Progress Note PATIENT NAME: Rakesh Chiu DATE OF SERVICE: August 22, 2024 TIME: 2:16 AM PATIENT IDENTITY VERIFICATION COMPLETED USING TWO (2) IDENTIFIERS: Name and Date of confirmed by patient verbally and Name and Date of confirmed by identification band. FALL SCREENING: Has the patient had 2 falls in the last year or 1 fall with injury or currently using an Ambulatory Assistive Device (Walker, Cane, Wheelchair, Crutches, etc.)? Emergency Room Patient: Screened in ED PATIENT GENDER DATA: Assigned male at PATIENT RELEVANT IMPLANT DATA REVIEWED: Yes PATIENT PRESENTS WITH AN IMPLANTABLE OR ATTACHED FIRER DIESEL LOCOMOTIVE: No --pt has fb on rt hip xray. approved MRI. Pt given squeeze ball for any discomfort. Exam performed with no complaints. RADIOLOGY DEPARTMENT: MR; Exam(s) Completed: Head: Routine Brain Spine: Cervical spine, Thoracic spine, and Lumbar spine. Lavender Administered: No PERIPHERAL IV DATA: Not applicable SIGNED BY: RT Amelia(R) August 22, 2024 2:16 AM Normal [facility] Basic metabolic 2000 panelon 08-22-2024 Anion gap [Moles/Vol] 16 mmol/L High 8-15 [facility] Comment on above: Order Comment: Speci men Type: BLOOD SPECIMENOrdering Facility: [facility] Address: [address] [place] [address] Performed By: #### 2 4321-2 ####[facility] LABCLIA [id number] [facility] [address] [place] [address] [place] Calcium [Mass/Vol] 9.3 mg/dL Normal 8.5-10.2 [facility] Comment on above: Order Comment: Speci men Type: BLOOD SPECIMENOrdering Facility: [facility] Address: [address] [place] [address] Performed By: #### 2 4321-2 ####[facility] LABCLIA [id number] [address], [facility] [place] Chloride [Moles/Vol] 103 mmol/L Normal 98-107 [facility] Comment on above: Order Comment: Speci men Type: BLOOD SPECIMENOrdering Facility: [facility] Address: [address] [place] [address] Performed By: #### 2 4321-2 ####[facility] LABCLIA [id number] [place] [address] [place] CO2 [Moles/Vol] 19 mmol/L Low 22-30 [facility] Comment on above: Order Comment: Speci men Type: BLOOD SPECIMENOrdering Facility: [facility] Address: [address] [place] [address] Performed By: #### 2 4321-2 ####[facility] LABCLIA [id number] [place] [id number] [place] Creatinine [Mass/Vol] 0.77 mg/dL Normal 0.73-1.22 [facility] Comment on above: Order Comment: Speci men Type: BLOOD SPECIMENOrdering Facility: [facility] Address: [address] [place], [place] [address] Performed By: #### 2 4321-2 ####[facility] LABCLIA [id number] [facility] [place] [id number] [place] Creatinine and Glomerular filtration rate.predicted panel (S/P/Bld) 104 mL/min/1.73m??? Normal >=60 [facility] Comment on above: Order Comment: Nohemy estrada Type: BLOOD SPECIMENOrdering Facility: [facility] Address: [address] [place] [address] Result Comment: Terri mated Glomerular Filtration Rate (eGFR) is calculated using the 2020 CKD-EPI creatinine equation. This equation utilizes serum creatinine, sex, and age as parameters. The creatinine assay has traceable calibration to isotope dilution-mass spectrometry. Refer to KDIGO guidelines for clinical interpretation. In patients with unstable renal function, e.g. those with acute kidney injury, the eGFR may not accurately reflect actual GFR. Performed By: #### 2 4321-2 ####[facility] [id number] [place] [address] [place] Glucose [Mass/Vol] 98 mg/dL Normal 74-99 [facility] Comment on above: Order Comment: Nohemy estrada Type: BLOOD SPECIMENOrdering Facility: [facility] Address: [address] [place] [address] Result Comment: The [place] Diabetes Association (ADA) provides guidance for cutoff values for fasting glucose and random glucose. The ADA defines fasting as no caloric intake for at least 8 hours. Fasting plasma glucose results between 100 to 125 mg/dL indicate increased risk for diabetes (prediabetes). Fasting plasma glucose results greater than or equal to 126 mg/dL meet the criteria for diagnosis of diabetes. In the absence of unequivocal hyperglycemia, results should be confirmed by repeat testing. In a patient with classic symptoms of hyperglycemia or hyperglycemic crisis, random plasma glucose results greater than or equal to 200 mg/dL meet the criteria for diagnosis of diabetes. Reference: Standards of Medical Care in Diabetes 2016, [place] [employer]. Diabetes Care. 2016.39(Suppl 1). Performed By: #### 2 4321-2 ####[facility] [id number] [place] [address] [place] Potassium [Moles/Vol] 4.2 mmol/L Normal 3.7-5.1 [facility] Comment on above: Order Comment: Nohemy estrada Type: BLOOD SPECIMENOrdering Facility: [facility] Address: [address] [place], [place] [address] Performed By: #### 2 4321-2 ####[facility] LABCLIA [id number] [address] [address] [place] Sodium [Moles/Vol] 138 mmol/L Normal 136-144 [facility] Comment on above: Order Comment: Speci men Type: BLOOD SPECIMENOrdering Facility: [facility] Address: [address] [place] [address] Performed By: #### 2 4321-2 ####[facility] LABCLIA [id number] [place] [address] [place] Urea nitrogen [Mass/Vol] 29 mg/dL High 9-24 [facility] Comment on above: Order Comment: Speci men Type: BLOOD SPECIMENOrdering Facility: [facility] Address: [address] [place] [address] Performed By: #### 2 4321-2 ####[facility] LABCLIA [id number] [place] [id number] [place] ED NOTEon 08-22-2024 ED NOTE HNO ID: [id number] Author: JOCELYNE DAVID RN Service: Emergency Medicine Author Type: Registered Nurse Type: ED Notes Filed: 08/22/2024 08:32 Note Text: Contact made with RN of H60-42 as requested, all questions answered. Transport placed for Pt. Normal [facility] ED NOTE HNO ID: [id number] Author: JOCELYNE DAVID RN Service: Emergency Medicine Author Type: Registered Nurse Type: ED Notes Filed: 08/22/2024 08:06 Note Text: H60-42 nurse contacted and requested to accept electronic handoff at this time. Normal [facility] ED NOTE HNO ID: [id number] Author: JOCELYNE DAVID RN Service: Emergency Medicine Author Type: Registered Nurse Type: ED Notes Filed: 08/22/2024 08:04 Note Text: Neurology bedside speaking with Pt at this time. Normal [facility] ED NOTE HNO ID: [id number] Author: JOCELYNE DAVID RN Service: Emergency Medicine Author Type: Registered Nurse Type: ED Notes Filed: 08/22/2024 07:04 Note Text: Pt care report received from SAUL Cohn, assumed Pt care at this time. Pt resting comfortably with no complaints at this time. [facility] ED NOTE HNO ID: [id number] Author: SUMMER SOLIS, SAUL Service: ? Author Type: Registered Nurse Type: ED Notes Filed: 08/22/2024 02:54 Note Text: Bed: E12-09 Expected date: 08/22/24 Expected time: 2:33 AM Means of arrival: Comments: E18 [facility] ED PROV NOTEon 08-22-2024 ED PROV NOTE HNO ID: [id number] Author: RISHABH ZAVALETA MD Service: Emergency Medicine Author Type: Physician Type: ED Provider Notes Filed: 08/22/2024 08:55 Note Text: ED Attending Continuation of Care Note August 22, 2024 8:50 AM Rakesh Chiu was endorsed to me by Dr. Kenna Robledo. The patient initially presented to the ED for: Numbness and diffuse myalgias 2 weeks status post viral illness. Clinical Course: Unremarkable clinical course under my care. 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 They recommend 400 mg daily of magnesium. Arrangements have been made by the night team to admit the patient to the general medicine service due to the severity of his symptoms . He is being admitted to general medicine Diagnosis postviral myalgia, numbness, Elevated systolic and diastolic blood pressure without history of hypertension Plan: Admit to general medicine for further evaluation and treatment. Patient agrees with disposition and plan. MD WAQAR Krishnan ERIC 08/22/24 0855 [facility] HISTORY PHYSICALon HISTORY PHYSICAL HNO ID: [id number] Author: JANNETH MADRIGAL MD Service: General Internal Medicine Author Type: Resident Type: H&P Filed: 08/22/2024 14:11 Note Text: Attestation signed by Janneth Madrigal MD at 08/22/2024 2:11 PM [facility] STAFF PHYSICIAN NOTE OF PERSONAL INVOLVEMENT IN CARE I have reviewed the history and physical examination obtained and documented by the resident and I personally participated in the milligan components. I have discussed the case and management of the patient's care. The following comments revise or confirm relevant milligan components of their note. 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 He reports a recent viral URI. He was treated as an outpatient steroids and antibiotics Labs and imaging unremarkable Per neurology, most likely post-vital myalgias -stop steroids - magnesium - titrate up gabapentin. Start NSAIDs - no need for further inpatient work-up or treatment Plan of care discussed with Provider, RN, Patient SIGNATURE: Janneth Madrigal MD DATE of SERVICE: August 22, 2024 TIME of SERVICE: 2:03 PM DEPARTMENT OF HOSPITAL MEDICINE HISTORY AND PHYSICAL EXAM SERVICE DATE: 08/22/2024 SERVICE TIME: 5:35 AM Primary Care Physician: Saemus Gage MD NIGHT AND WEEKEND COVERAGE: [facility]IN [facility] COVERAGE: Days: [phone], please page Lyssa Dominguez for patient issues. Nights: [phone], please page Nicolasa Ruiz; overnight/admitting pager [phone] Subjective CHIEF COMPLAINT: paraesthesia HPI: This is a 59 year old male with hx of GBS in 2005 who presents with upper extremities paraesthesia and myalgia. Patient had a URI with cough and body aches on 08/11 and saw his PCP who started 5 day course of azithromycin with prednisone. On 08/18 returned to PCP because he was not improving and was given 10 day course of levofloxacin with prednisone. Patient reported paresthesia on the bilateral fingertips that started last Friday along with muscle pain in all extremities. On 08/18, he went to see his PCP and received 12 mg dexamethasone which helped his muscle pain briefly but then again worsened on 08/20 and his PCP administered 16 mg of dex. Patient states that his muscle pain improved until today when he was getting his MRI. He describes muscle pain as achy but different from body aches that he got when he had COVID. Pain gets worse with weightbearing. He said that gabapentin helped his muscle pain. Regarding the paresthesia that started at the tip of his fingers and toes then started extending up his palms and plantar surface. Denies any dyspnea loss of balance, falls, weakness. Denies gait changes though feels that his feet feel different. Also reports anal paresthesia upon wiping. Denies urinary or bowel incontinence. Patient states that he had similar symptoms when he was diagnosed with GBS in 2005. Afebrile BP 150s-160s/90s satting well on RA No past medical history on file. No past surgical history on file. No family history on file. PRIOR TO ADMISSION MEDICATIONS: None ALLERGIES No Known Allergies REVIEW OF SYSTEM: Negative other than stated above. Objective PHYSICAL EXAM: BP 171/102 Pulse 68 Temp (Src) 97.7 (Oral) Resp 18 Wt 168 lb (76.2kg) SpO2 97% O2 Therapy: Room Air Physical Exam Performed: GENERAL: Alert, no distress, cooperative, anxious when talking about LP SKIN: Skin color, texture, turgor normal. No rashes or lesions. HEAD/SINUSES: No significant findings NECK: No jugulovenous distention, No carotid bruits, Carotid pulse normal contour, Supple LUNGS: Lungs clear to auscultation, Good diaphragmatic excursion CARDIAC: Normal S1 and S2; no rubs, murmurs, or gallops ABDOMEN: Abdomen soft, non-tender, BS normal, No masses or organomegaly EXTREMITIES: Extremities normal, no deformities, edema, clubbing or skin discoloration. Good capillary refill., No ulcers NEURO: Gait normal. Reflexes normal and symmetric. Sensation grossly intact, Cranial nerves II-XII intact, parasthesia in 3 digits and toes PULSES: 2+ radial, 2+ carotid Lines, Drains, and Airways Line Duration Peripheral 08/21/24 2323 Left Forearm 20 Gauge <1 day Patient does not currently have any lines, drains or airways. DATA: Diagnostic tests reviewed for today's visit: CBC, Coags, BMP, Mg, Phos Recent Labs 08/21/24 2321 WBC 20.31* HB 15.8 HCT 44.5 PLT 280 NA 137 K 4.6 CHLOR 104 CO2 20* BUN 28* CREAT 0.72* GLUC 155* CA 9.2 MG 2.3 Liver Function, Amylase, AND Lipase Recent Labs 08/21/24 2321 TPROT 6.6 ALB 4.0 ALT 23 AST 16 ALKPHOS 71 TBILI 0.4 Assessment/Plan Problem List No active problems on problem list HOSPITAL COURSE: Rakesh Chiu is a 59 year old male with hx of GBS in 2006 who presents wi (more content not included)... Normal [facility] MRI BRAIN WO IVCONon 025 MRI BRAIN WO IVCON * * *Final Report* * * DATE OF EXAM: Aug 22 2024 3:25AM QBM 0294 - MRI BRAIN WO IVCON / PROCEDURE REASON: Multiple sclerosis, monitor * * * * Physician Interpretation * * * * EXAMINATION: MRI BRAIN WO IVCON CLINICAL HISTORY: Neurologic deficit TECHNIQUE: Routine noncontrast MRI protocol including diffusion images. MQ: MRBWO_2 COMPARISON: None. RESULT: Acute Change: There is no evidence of restricted diffusion to suggest an acute infarct. Hemorrhage: No evidence of prior parenchymal hemorrhage on the susceptibility weighted images. Mass Lesion/ Mass Effect: No evidence of an intracranial mass or extra-axial fluid collection. No significant mass effect. Chronic Change: The white matter is within normal limits of signal intensity for age. Parenchyma: No significant volume loss for age. The brain parenchyma is otherwise within normal limits of signal intensity and morphology. Ventricles: Normal caliber and morphology. Skull Base: Hypothalamic and pituitary region are grossly normal. Craniocervical junction is normal. No significant marrow replacement process. Vasculature: Major intracranial arterial structures, and dural venous sinuses show typical flow void, suggesting patency by spin echo criteria. Other: Bilateral maxillary mucous retention cysts IMPRESSION: No significant abnormality. Medical Affairs Leader: LUDWIG Transcribe Date/Time: Aug 22 2024 3:43A Dictated by : KIM ROLLINS MD This examination was interpreted and the report reviewed and electronically signed by: KIM ROLLINS MD on Aug 22 2024 3:51AM EST [id number] Normal [facility] MRI CERVICAL SPINE WO IVCONo n 08-22-2024 MRI CERVICAL SPINE WO IVCON * * *Final Report* * * DATE OF EXAM: Aug 22 2024 3:25AM QBM 0297 - MRI CERVICAL SPINE WO IVCON / PROCEDURE REASON: Spinal stenosis, cervical * * * * Physician Interpretation * * * * EXAMINATION: MRI CERVICAL SPINE WO IVCON, MRI THORACIC SPINE WO IVCON, MRI LUMBAR SPINE WO IVCON CLINICAL HISTORY: Spinal stenosis, cervical TECHNIQUE: Routine cervical, thoracic, and lumbosacral spine MR protocol without gadolinium. MQ: MRCTLWO_3 COMPARISON: None. RESULT: CERVICAL: Counting reference: Craniocervical junction. Anatomic Variants: None. Alignment: Alignment is anatomic. Craniocervical junction: Craniocervical junction is normal. Cord: The cervical spinal cord is within normal limits of signal intensity and morphology. Bone marrow signal/fracture: No evidence of pathologic marrow infiltration. No evidence of prior fracture. Cervical soft tissues: The paraspinal soft tissues are within normal limits. Canal and foramina: Minimal degenerative disc C4-5 without significant central stenosis THORACIC: Counting reference: Craniocervical and lumbosacral junctions. For the purposes of this report, L4-5 is considered the level of the iliac crest and assume there are 5 lumbar-type vertebrae. Anatomic variant: None. Localizer images: Unremarkable Alignment: Alignment is anatomic. Cord: The thoracic spinal cord is within normal limits of signal intensity and morphology. Bone marrow signal/fracture: No evidence of pathologic marrow infiltration. No evidence of prior fracture. Thoracic soft tissues: The paraspinal soft tissues are within normal limits. Canal and foramina: No significant thoracic canal or foraminal stenosis within the constraints of the study. LUMBAR: Counting reference: Craniocervical and lumbosacral junctions. For the purposes of this report, L4-5 is considered the level of the iliac crest and assume there are 5 lumbar-type vertebrae. Anatomic variant: None. Localizer images: Unremarkable Alignment: Alignment is anatomic. Bone marrow signal/fracture: No evidence of pathologic marrow infiltration. No evidence of prior fracture. Conus: The conus is within normal limits of signal intensity and morphology. Paraspinal soft tissues: Paraspinal soft tissues are within normal limits. Canal and foramina: Severe disc height loss at L5-S1 with disc bulging contributing to moderate bilateral foraminal stenosis. No central stenosis. Minimal degenerative change at L4-5. Sacrum and iliac wings: The visualized sacrum and iliac wings are within normal limits. The presacral soft tissues are normal in appearance. IMPRESSION: No acute abnormality of the cervical, thoracic, and lumbar spine. Minimal degenerative change described above. Medical Affairs Leader: PSCB Transcribe Date/Time: Aug 22 2024 3:42A Dictated by : KIM ROLLINS MD This examination was interpreted and the report reviewed and electronically signed by: KIM ROLLINS MD on Aug 22 2024 4:12AM EST [id number] Normal [facility] MRI LUMBAR SPINE WO IVCONon 08-22-2024 MRI LUMBAR SPINE WO IVCON * * *Final Report* * * DATE OF EXAM: Aug 22 2024 3:25AM QBM 0303 - MRI LUMBAR SPINE WO IVCON / PROCEDURE REASON: Spinal stenosis, lumbar * * * * Physician Interpretation * * * * EXAMINATION: MRI CERVICAL SPINE WO IVCON, MRI THORACIC SPINE WO IVCON, MRI LUMBAR SPINE WO IVCON CLINICAL HISTORY: Spinal stenosis, cervical TECHNIQUE: Routine cervical, thoracic, and lumbosacral spine MR protocol without gadolinium. MQ: MRCTLWO_3 COMPARISON: None. RESULT: CERVICAL: Counting reference: Craniocervical junction. Anatomic Variants: None. Alignment: Alignment is anatomic. Craniocervical junction: Craniocervical junction is normal. Cord: The cervical spinal cord is within normal limits of signal intensity and morphology. Bone marrow signal/fracture: No evidence of pathologic marrow infiltration. No evidence of prior fracture. Cervical soft tissues: The paraspinal soft tissues are within normal limits. Canal and foramina: Minimal degenerative disc C4-5 without significant central stenosis THORACIC: Counting reference: Craniocervical and lumbosacral junctions. For the purposes of this report, L4-5 is considered the level of the iliac crest and assume there are 5 lumbar-type vertebrae. Anatomic variant: None. Localizer images: Unremarkable Alignment: Alignment is anatomic. Cord: The thoracic spinal cord is within normal limits of signal intensity and morphology. Bone marrow signal/fracture: No evidence of pathologic marrow infiltration. No evidence of prior fracture. Thoracic soft tissues: The paraspinal soft tissues are within normal limits. Canal and foramina: No significant thoracic canal or foraminal stenosis within the constraints of the study. LUMBAR: Counting reference: Craniocervical and lumbosacral junctions. For the purposes of this report, L4-5 is considered the level of the iliac crest and assume there are 5 lumbar-type vertebrae. Anatomic variant: None. Localizer images: Unremarkable Alignment: Alignment is anatomic. Bone marrow signal/fracture: No evidence of pathologic marrow infiltration. No evidence of prior fracture. Conus: The conus is within normal limits of signal intensity and morphology. Paraspinal soft tissues: Paraspinal soft tissues are within normal limits. Canal and foramina: Severe disc height loss at L5-S1 with disc bulging contributing to moderate bilateral foraminal stenosis. No central stenosis. Minimal degenerative change at L4-5. Sacrum and iliac wings: The visualized sacrum and iliac wings are within normal limits. The presacral soft tissues are normal in appearance. IMPRESSION: No acute abnormality of the cervical, thoracic, and lumbar spine. Minimal degenerative change described above. Medical Affairs Leader: PSCB Transcribe Date/Time: Aug 22 2024 3:42A Dictated by : KIM ROLLINS MD This examination was interpreted and the report reviewed and electronically signed by: KIM ROLLINS MD on Aug 22 2024 4:12AM EST [id number] Normal [facility] MRI THORACIC SPINE WO IVCONo n 08-22-2024 MRI THORACIC SPINE WO IVCON * * *Final Report* * * DATE OF EXAM: Aug 22 2024 3:25AM [facility], [facility] 0325 - MRI THORACIC SPINE WO IVCON / PROCEDURE REASON: Numbness or tingling, paresthesia (Ped 0-18y) * * * * Physician Interpretation * * * * EXAMINATION: MRI CERVICAL SPINE WO IVCON, MRI THORACIC SPINE WO IVCON, MRI LUMBAR SPINE WO IVCON CLINICAL HISTORY: Spinal stenosis, cervical TECHNIQUE: Routine cervical, thoracic, and lumbosacral spine MR protocol without gadolinium. MQ: [id number] COMPARISON: None. RESULT: CERVICAL: Counting reference: Craniocervical junction. Anatomic Variants: None. Alignment: Alignment is anatomic. Craniocervical junction: Craniocervical junction is normal. Cord: The cervical spinal cord is within normal limits of signal intensity and morphology. Bone marrow signal/fracture: No evidence of pathologic marrow infiltration. No evidence of prior fracture. Cervical soft tissues: The paraspinal soft tissues are within normal limits. Canal and foramina: Minimal degenerative disc C4-5 without significant central stenosis THORACIC: Counting reference: Craniocervical and lumbosacral junctions. For the purposes of this report, L4-5 is considered the level of the iliac crest and assume there are 5 lumbar-type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 Impression/Recommenda gonzales Chiu is a 59 year old right handed male with PMH of GBS in 2005 and b/l carpal tunnel from [place], [place] who presented initially to the ED with a chief (more content not included)... Normal [facility] ED NOTEon 08-17-2024 ED NOTE HNO ID: [id number] Author: VIDAL OROZCO, RN Service: Emergency Medicine Author Type: Registered Nurse Type: ED Notes Filed: 08/17/2024 04:02 Note Text: Patient Discharged in stable condition, IV removed. Educated on visit, follow-up and use of MyChart, verbalizes understanding and denies needs, questions, or concerns at this time. Ambulated to lobby with steady gait. All patient belonging accounted for and in patient's possession. Normal [facility] ED PROV NOTEon 08-17-2024 ED PROV NOTE HNO ID: [id number] Author: MCKENZIE BRYAN MD Service: Emergency Medicine Author Type: Physician Type: ED Provider Notes Filed: 08/17/2024 21:25 Note Text: ED Provider Note Patient Name: Rakesh Chiu : 1965 SERVICE DATE: 08/16/24 History Patient presents with: Numbness: Pt complaining of intermittent numbness in feet and body aches, some difficulty swallowing. Hx of GBS believes this may be a flare up. HPI Patient is a 59 year old male with a PMHx of Guillain [place] (2005) who is presenting to the ED for diffuse myalgias, and sore throat that began earlier today. States he had some tingling to bilateral feet that began yesterday morning, lasted for a few hours and resolved spontaneously. Currently not having any tingling to extremities. He has a hx of GBS in 2005 and states that this is somewhat different compared to what he felt at that time. He did not require intubation with GBS at that time. Denies fevers, chills, nausea, vomiting, or diarrhea. Recently treated for URI with Z-pack and steroids and is still coughing. Chart Review: - Office visit with PCP yesterday 08/16/24 - for paresthesias - Office visit with PCP 08/11/24 for acute bronchitis No past medical history on file. No past surgical history on file. No family history on file. Social History Tobacco Use - Smoking status: Not on file - Smokeless tobacco: Not on file Substance and Sexual Activity - Alcohol use: Not on file - Drug use: Not on file - Sexual activity: Not on file ALLERGIES Not on File Review of Systems ROS otherwise negative except as documented above in HPI. Physical Exam Vitals [08/16/24 1900] BP Pulse Temp Temp src Resp SpO2 Weight Height 158/102 59 -- -- 20 100 % 78.9 kg (174 lb) 1.753 m (5' 9 ) Physical Exam Vitals and nursing note reviewed. Exam conducted with a studio set up worker present. Constitutional: General: He is not in acute distress. Appearance: Normal appearance. He is not ill-appearing, toxic-appearing or diaphoretic. HENT: Mouth/Throat: Mouth: Mucous membranes are moist. Pharynx: Oropharynx is clear. Eyes: Pupils: Pupils are equal, round, and reactive to light. Cardiovascular: Rate and Rhythm: Regular rhythm. Bradycardia present. Pulses: Normal pulses. Heart sounds: Normal heart sounds. No murmur heard. No friction rub. No gallop. Pulmonary: Effort: Pulmonary effort is normal. No respiratory distress. Breath sounds: Normal breath sounds. No wheezing, rhonchi or rales. Abdominal: General: Abdomen is flat. There is no distension. Palpations: Abdomen is soft. Tenderness: There is no abdominal tenderness. There is no guarding or rebound. Musculoskeletal: General: No swelling, tenderness, deformity or signs of injury. Cervical back: Neck supple. Right lower leg: No edema. Left lower leg: No edema. Skin: General: Skin is warm and dry. Neurological: General: No focal deficit present. Mental Status: He is alert and oriented to person, place, and time. Cranial Nerves: No cranial nerve deficit. Sensory: No sensory deficit. Motor: No weakness. Coordination: Coordination normal. Diagnostic Testing ED Labs Ordered and Reviewed COMPLETE BLOOD COUNT AND DIFFERENTIAL - Abnormal; Notable for the following components: Result Value Ref Range WBC 13.17 (*) 3.70 - 11.00 k/uL Abs Lymph 4.33 (*) 1.00 - 4.00 k/uL Abs Adams 0.91 (*) <0.87 k/uL Abs Immature Gran 0.32 (*) <0.10 k/uL All other components within normal limits COMPREHENSIVE METABOLIC PANEL - Abnormal; Notable for the following components: Glucose 104 (*) 74 - 99 mg/dL Potassium 3.3 (*) 3.7 - 5.1 mmol/L All other components within normal limits MAGNESIUM - Normal COVID AND INFLUENZA A/B AND RSV PCR, EXPEDITED - Normal Narrative: Reference Range (the expected result in uninfected individuals): Not detected Procedures ED Course / Clinical Impression ED Course as of 08/17/242120 Others' Documentation FriAugust 17, 2024 010 CMP: Hypokalemia, replacement ordered. No renal insufficiency. LFTs: Liver function tests show no evidence of transaminitis, elevated alk phos, or hyperbilirubinemia. [CR] 0100 Respiratory syncytial virus (RSV) RNA: Not detected [CR] 0100 Influenza B RNA: Not detected [CR] 0100 Influenza A RNA: Not detected [CR] 0100 SARS-CoV-2 (Agent of COVID-19) RNA: Not detected [CR] 0100 Magnesium: 2.2 WNL [CR] 0100 CBC: Mild leukocytosis, no anemia or thrombocytopenia [CR] 0101 XR CHEST 2V FRONTAL/LAT CXR reviewed and personally interpreted and showed no focal consolidation concerning for PNA, PTX, pleural effusions or overt pulmonary edema. IMPRESSION: No acute radiographic abnormality. [CR] 0240 CK: 107 [CR] ED Course User Index [CR] Josie Brown DO Clinical Impressions as of 08/17/242120 Myalgias Upper respiratory tract infection, unspecified type Hypokalemia MDM / Disposition / Plan 59-year-old (more content not included)... Normal [facility] CBC W Auto Differential pane l (Bld)on 08-16-2024 Basophils (Bld) [#/Vol] 0.07 10*3/uL Normal <0.11 [facility] Comment on above: Order Comment: Nohemy estrada Type: BLOOD SPECIMENOrdering Facility: [facility] Address: [address] [place] [address] Performed By: #### 5 7021-8 ####[facility] LABCLIA [id number] [place] [address] [place] Basophils/100 WBC (Bld) 0.5 % Normal [facility] Comment on above: Order Comment: Nohemy estrada Type: BLOOD SPECIMENOrdering Facility: [facility] Address: [address] [place] [address] Performed By: #### 5 7021-8 ####[facility] LABCLIA [id number] [address], [place] [address] [place] Differential cell count method Nom (Bld) Auto Normal [facility] Comment on above: Order Comment: Speci men Type: BLOOD SPECIMENOrdering Facility: [facility] Address: [address] [place] [address] Performed By: #### 5 7021-8 ####[facility] LABCLIA [id number] [address], [place] [address] [place] Eosinophils (Bld) [#/Vol] 0.14 10*3/uL Normal <0.46 [facility] Comment on above: Order Comment: Speci men Type: BLOOD SPECIMENOrdering Facility: [facility] Address: [address] [place] [address] Performed By: #### 5 7021-8 ####[facility] LABCLIA [id number] [place] [address] [place] Eosinophils/100 WBC (Bld) 1.1 % Normal [facility] Comment on above: Order Comment: Speci men Type: BLOOD SPECIMENOrdering Facility: [facility] Address: [address] [place] [address] Performed By: #### 5 7021-8 ####[facility] LABCLIA [id number] [address], [place] [address] [place] Erythrocyte distribution width (RBC) [Ratio] 11.8 % Normal 11.5-15.0 [facility] Comment on above: Order Comment: Speci men Type: BLOOD SPECIMENOrdering Facility: [facility] Address: [address] [place] [address] Performed By: #### 5 7021-8 ####[facility] LABCLIA [id number] [place] [address] [place] Hematocrit (Bld) [Volume fraction] 40.7 % Normal 39.0-51.0 [facility] Comment on above: Order Comment: Speci men Type: BLOOD SPECIMENOrdering Facility: [facility] Address: [address] [place] [address] Performed By: #### 5 7021-8 ####[facility] LABCLIA [id number] [place] [address] [place] Hemoglobin (Bld) [Mass/Vol] 14.6 g/dL Normal 13.0-17.0 [facility] Comment on above: Order Comment: Speci men Type: BLOOD SPECIMENOrdering Facility: [facility] Address: [address] [place] [address] Performed By: #### 5 7021-8 ####[facility] LABCLIA [id number] [place] [address] [place] Immature granulocytes (Bld) [#/Vol] 0.32 10*3/uL High <0.10 [facility] Comment on above: Order Comment: Speci men Type: BLOOD SPECIMENOrdering Facility: [facility] Address: [address] [place] [address] Performed By: #### 5 7021-8 ####[facility] LABCLIA [id number] [place] [address] [place] Immature granulocytes/100 WBC (Bld) 2.4 % Normal [facility] Comment on above: Order Comment: Speci men Type: BLOOD SPECIMENOrdering Facility: [facility] Address: [address] [place] [address] Performed By: #### 5 7021-8 ####[facility] LABCLIA [id number] [place] [id number] [place] Lymphocytes (Bld) [#/Vol] 4.33 10*3/uL High 1.00-4.00 [facility] Comment on above: Order Comment: Speci men Type: BLOOD SPECIMENOrdering Facility: [facility] Address: [address] [place] [address] Performed By: #### 5 7021-8 ####[facility] LABCLIA [id number] [place] [address] [place] Lymphocytes/100 WBC (Bld) 32.9 % Normal [facility] Comment on above: Order Comment: Speci men Type: BLOOD SPECIMENOrdering Facility: [facility] Address: [address] [place] [address] Performed By: #### 5 7021-8 ####[facility] LABCLIA [id number] [place] [address] [place] MCH (RBC) [Entitic mass] 30.8 pg Normal 26.0-34.0 [facility] Comment on above: Order Comment: Speci men Type: BLOOD SPECIMENOrdering Facility: [facility] Address: [address] [place] [address] Performed By: #### 5 7021-8 ####[facility] LABIA [id number] [place] [address] [place] MCHC (RBC) [Mass/Vol] 35.9 g/dL Normal 30.5-36.0 [facility] Comment on above: Order Comment: Speci men Type: BLOOD SPECIMENOrdering Facility: [facility] Address: [address] [place] [address] Performed By: #### 5 7021-8 ####[facility] LABIA [id number] [place] [address] [place] MCV (RBC) [Entitic vol] 85.9 fL Normal 80.0-100.0 [facility] Comment on above: Order Comment: Speci men Type: BLOOD SPECIMENOrdering Facility: [facility] Address: [address] [place] [address] Performed By: #### 5 7021-8 ####[facility] LABCLIA [id number] [place] [address] [place] Monocytes (Bld) [#/Vol] 0.91 10*3/uL High <0.87 [facility] Comment on above: Order Comment: Speci men Type: BLOOD SPECIMENOrdering Facility: [facility] Address: [address] [place] [address] Performed By: #### 5 7021-8 ####[facility] LABCLIA [id number] [address] [address] [place] Monocytes/100 WBC (Bld) 6.9 % Normal [facility] Comment on above: Order Comment: Speci men Type: BLOOD SPECIMENOrdering Facility: [facility] Address: [address] [place] [address] Performed By: #### 5 7021-8 ####[facility] LABCLIA [id number] [address], [place] [address] [place] Neutrophils (Bld) [#/Vol] 7.40 10*3/uL Normal 1.45-7.50 [facility] Comment on above: Order Comment: Speci men Type: BLOOD SPECIMENOrdering Facility: [facility] Address: [address] [place] [address] Performed By: #### 5 7021-8 ####[facility] LABCLIA [id number] [place] [address] [place] Neutrophils/100 WBC (Bld) 56.2 % Normal [facility] Comment on above: Order Comment: Speci men Type: BLOOD SPECIMENOrdering Facility: [facility] Address: [address] [place] [address] Performed By: #### 5 7021-8 ####[facility] LABCLIA [id number] [place] [id number] [place] Nucleated RBC (Bld) [#/Vol] 10*3/uL Normal <0.01 [facility] Comment on above: Order Comment: Speci men Type: BLOOD SPECIMENOrdering Facility: [facility] Address: [address] [place] [address] Performed By: #### 5 7021-8 ####[facility] LABCLIA [id number] [address] [address] [place] Nucleated RBC/100 WBC (Bld) [Ratio] 0.0 /100 WBC Normal [facility] Comment on above: Order Comment: Speci men Type: BLOOD SPECIMENOrdering Facility: [facility] Address: [address] [place] [address] Performed By: #### 5 7021-8 ####[facility] LABIA [id number] [place] [address] [place] Platelet mean volume (Bld) [Entitic vol] 9.3 fL Normal 9.0-12.7 [facility] Comment on above: Order Comment: Speci men Type: BLOOD SPECIMENOrdering Facility: [facility] Address: [address] [place] [address] Performed By: #### 5 7021-8 ####[facility] LABIA [id number] [place] [address] [place] Platelets (Bld) [#/Vol] 268 10*3/uL Normal 150-400 [facility] Comment on above: Order Comment: Speci men Type: BLOOD SPECIMENOrdering Facility: [facility] Address: [address] [place] [address] Performed By: #### 5 7021-8 ####[facility] LABIA [id number] [place] [address] [place] RBC (Bld) [#/Vol] 4.74 10*6/uL Normal 4.20-6.00 [facility] Comment on above: Order Comment: Speci men Type: BLOOD SPECIMENOrdering Facility: [facility] Address: [address] [place] [address] Performed By: #### 5 7021-8 ####[facility] LABCLIA [id number] [place] [id number] [place] WBC (Bld) [#/Vol] 13.17 10*3/uL High 3.70-11.00 [facility] Comment on above: Order Comment: Speci men Type: BLOOD SPECIMENOrdering Facility: [facility] Address: [address] [place] [address] Performed By: #### 5 7021-8 ####[facility] LABCLIA [id number] [address] OF [facility] CK SerPl-cCncon 08-16-2024 CK [Catalytic activity/Vol] 107 U/L Normal 51-298 [facility] Comment on above: Order Comment: Speci men Type: BLOOD SPECIMENOrdering Facility: [facility] Address: [address] [place] [address] Performed By: #### 1 9123-9, 2156-09, 19563-4 ####[facility] LABCLIA [id number] [place] [address] [place] [facility] Comprehensive metabolic 2000 panelon 08-16-2024 Albumin [Mass/Vol] 4.1 g/dL Normal 3.9-4.9 [facility] Comment on above: Order Comment: Speci men Type: BLOOD SPECIMENOrdering Facility: [facility] Address: [address] [place] [address] Performed By: #### 1 9123-9, 2156-09, ####[facility] LABCLIA [id number] [place] [id number] [place] ALP [Catalytic activity/Vol] 60 U/L Normal 38-113 [facility] Comment on above: Order Comment: Speci men Type: BLOOD SPECIMENOrdering Facility: [facility] Address: [address] [place] [address] Performed By: #### 1 9123-9, 2156-09, 77458-1 ####[facility] LABCLIA [id number] [place] [id number] [place] ALT [Catalytic activity/Vol] 31 U/L Normal 10-54 [facility] Comment on above: Order Comment: Speci men Type: BLOOD SPECIMENOrdering Facility: [facility] Address: [address] [place] [id number] Performed By: #### 1 9123-9, 2156-09, ####[facility] LABCLIA [id number] [address] [address] [place] Anion gap [Moles/Vol] 12 mmol/L Normal 8-15 [facility] Comment on above: Order Comment: Speci men Type: BLOOD SPECIMENOrdering Facility: [facility] Address: [address] [place] [address] Performed By: #### 1 9123-9, 2156-09, ####[facility] LABCLIA [id number] [address] [address] [place] AST [Catalytic activity/Vol] 17 U/L Normal 14-40 [facility] Comment on above: Order Comment: Speci men Type: BLOOD SPECIMENOrdering Facility: [facility] Address: [address] [place], [place] [address] Performed By: #### 1 9123-9, 2156-09, ####[facility] LABCLIA [id number] [address] [address] [place] Bilirubin [Mass/Vol] 0.5 mg/dL Normal 0.2-1.3 [facility] Comment on above: Order Comment: Speci men Type: BLOOD SPECIMENOrdering Facility: [facility] Address: [address] [place] [address] Performed By: #### 1 9123-9, 2156-09, ####[facility] LABCLIA [id number] [facility] [address] [place] [address] [place] Calcium [Mass/Vol] 8.8 mg/dL Normal 8.5-10.2 [facility] Comment on above: Order Comment: Speci men Type: BLOOD SPECIMENOrdering Facility: [facility] Address: [address] [place], [place] [address] Performed By: #### 1 9123-9, 2156-09, ####[facility] LABCLIA [id number] [address] [address] [place] Chloride [Moles/Vol] 104 mmol/L Normal 98-107 [facility] Comment on above: Order Comment: Speci men Type: BLOOD SPECIMENOrdering Facility: [facility] Address: [address] [place], [place] [address] Performed By: #### 1 9123-9, 2156-09, ####[facility] LABCLIA [id number] [place] [id number] [place] CO2 [Moles/Vol] 24 mmol/L Normal 22-30 [facility] Comment on above: Order Comment: Speci men Type: BLOOD SPECIMENOrdering Facility: [facility] Address: [address] [place], [place] [address] Performed By: #### 1 9123-9, 2156-09, ####[facility] LABIA [id number] [place] [id number] [place] Creatinine [Mass/Vol] 0.87 mg/dL Normal 0.73-1.22 [facility] Comment on above: Order Comment: Speci men Type: BLOOD SPECIMENOrdering Facility: [facility] Address: [address] [place], [place] [address] Performed By: #### 1 9123-9, 2156-09, ####[facility] LABIA [id number] [address] [address] [place] Creatinine and Glomerular filtration rate.predicted panel (S/P/Bld) 100 mL/min/1.73m??? Normal >=60 [facility] Comment on above: Order Comment: Speci men Type: BLOOD SPECIMENOrdering Facility: [facility] Address: [address] [place] [address] Result Comment: Terri mated Glomerular Filtration Rate (eGFR) is calculated using the 2020 CKD-EPI creatinine equation. This equation utilizes serum creatinine, sex, and age as parameters. The creatinine assay has traceable calibration to isotope dilution-mass spectrometry. Refer to KDIGO guidelines for clinical interpretation. In patients with unstable renal function, e.g. those with acute kidney injury, the eGFR may not accurately reflect actual GFR. Performed By: #### 1 9123-9, 2156-09, ####[facility] LABCLIA [id number] [address] [address] [place] Glucose [Mass/Vol] 104 mg/dL High 74-99 [facility] Comment on above: Order Comment: Nohemy estrada Type: BLOOD SPECIMENOrdering Facility: [facility] Address: [address] [place] [address] Result Comment: The [place] Diabetes Association (ADA) provides guidance for cutoff values for fasting glucose and random glucose. The ADA defines fasting as no caloric intake for at least 8 hours. Fasting plasma glucose results between 100 to 125 mg/dL indicate increased risk for diabetes (prediabetes). Fasting plasma glucose results greater than or equal to 126 mg/dL meet the criteria for diagnosis of diabetes. In the absence of unequivocal hyperglycemia, results should be confirmed by repeat testing. In a patient with classic symptoms of hyperglycemia or hyperglycemic crisis, random plasma glucose results greater than or equal to 200 mg/dL meet the criteria for diagnosis of diabetes. Reference: Standards of Medical Care in Diabetes 2016, [place] [employer]. Diabetes Care. 2016.39(Suppl 1). Performed By: #### 1 9123-9, 2156-09, ####[facility] LABCLIA [id number] [address] [address] [place] Potassium [Moles/Vol] 3.3 mmol/L Low 3.7-5.1 [facility] Comment on above: Order Comment: Nohemy estrada Type: BLOOD SPECIMENOrdering Facility: [facility] Address: [address] [place] [id number] Performed By: #### 1 9123-9, 2156-09, ####[facility] LABIA [id number] [address] [address] [place] Protein [Mass/Vol] 6.7 g/dL Normal 6.3-8.0 [facility] Comment on above: Order Comment: Speci men Type: BLOOD SPECIMENOrdering Facility: [facility] Address: [address] [place], [place] [address] Performed By: #### 1 9123-9, 2156-09, ####[facility] [id number] [address] [address] [place] Sodium [Moles/Vol] 140 mmol/L Normal 136-144 [facility] Comment on above: Order Comment: Speci men Type: BLOOD SPECIMENOrdering Facility: [facility] Address: [address] [place], [place] [address] Performed By: #### 1 9123-9, 2156-09, ####[facility] [id number] [place] [id number] [place] Urea nitrogen [Mass/Vol] 16 mg/dL Normal 9-24 [facility] Comment on above: Order Comment: Speci men Type: BLOOD SPECIMENOrdering Facility: [facility] Address: [address] [place], [place] [address] Performed By: #### 1 9123-9, 2156-09, ####[facility] [id number] [address] [address] [place] PRL02ou 08-16-2024 ECG01 Ventricular Rate : 5 1 BPM Atrial Rate : 51 BPM P-R Interval : 112 ms QRS Duration : 90 ms Q-T Interval : 452 ms QTC Calculation(Bazett) : 416 ms Calculated P Malden : 53 degrees Calculated R Malden : 38 degrees Calculated T Malden : 21 degrees SINUS BRADYCARDIA OTHERWISE NORMAL ECG NOTE: PLEASE SEE PHYSICIAN'S NOTE FROM E.DTyson VISIT Confirmed by HIPOLITO PULIDO M.D. ([id number]), supervising film or videotape editor BREANNE GONCALVES ([id number]) on 08/21/2024 11:59:22 AM NAME : RAKESH CHIU PID : [id number] : 1965 Gender : Male Race : Unknown ORD : Procedure Date : Aug 16 2024 19:38:23 Edit Date : Aug 21 2024 11:59:24 Diagnosis: SINUS BRADYCARDIA OTHERWISE NORMAL ECG NOTE: PLEASE SEE PHYSICIAN'S NOTE FROM E.D. VISIT Confirmed by HIPOLITO PULIDO M.D. ([id number]), supervising film or videotape editor BREANNE GONCALVES ([id number]) on 08/21/2024 11:59:22 AM Test Reason : Location : 2 : ED 015 Overread By : HIPOLITO PULIDO M.D. Edited By : BREANNE GONCALVES Referred By : , Acquired by : Zoila COKER [facility] ED NOTEon 08-16-2024 ED NOTE HNO ID: [id number] Author: CRYSTAL MISTRY, WILLIAN Service: ? Author Type: Clinical Air Pumper Type: ED Notes Filed: 08/16/2024 21:19 Note Text: Pt declined updating vs Normal [facility] ED Triage Noteon 08-16-2024 ED Triage Note HNO ID: [id number] Author: AME DIAZ DO Service: Emergency Medicine Author Type: Physician Type: ED Triage Notes Filed: 08/16/2024 19:45 Note Text: ED INTAKE NOTE Patient Name: Rakesh Chiu Service Date: 08/16/24 BRIEF HPI: This is a 59 year old male who presents to the ED with: Recently treated for URI with Zpack Today noticed paresthesias in his feet bilaterally Also feels like he is losing mobility in his legs Body aches and difficulty swallowing Had GBS in 2006 and says this feels different BRIEF EXAM: NAD Awake and Alert Non labored breathing No focal neurological deficits INITIAL WORKUP AND DECISION MAKING: Orders Placed This Encounter XR CHEST 2V FRONTAL/LAT CBC + DIFF COMP METABOLIC PANEL (BMP+LFT) MAGNESIUM BLD COVID AND Influenza A/B AND RSV PCR, Expedited ECG COMPLETE ECG COMPLETE Provider examination performed via virtual platform with assistance from bedside clinician. SIGNATURE: Ame Diaz DO Normal [facility] Magnesium SerPl-mCncon 08-16 Magnesium [Mass/Vol] 2.2 mg/dL Normal 1.7-2.3 [facility] Comment on above: Order Comment: Speci men Type: BLOOD SPECIMENOrdering Facility: [facility] Address: [address] [place] [address] Performed By: #### 1 9123-9, 2157-6, 15944-8 ####[facility] LABCLIA [id number] [place] [address] [place] XR CHEST 2V FRONTAL/LATon XR CHEST 2V FRONTAL/LAT * * *Final Report* * * DATE OF EXAM: Aug 16 2024 8:26PM EGX [id number] - XR CHEST 2V FRONTAL/LAT / PROCEDURE REASON: Syncope/presyncope, cardiac cause suspected * * * * Physician Interpretation * * * * EXAMINATION: CHEST RADIOGRAPH (2 VIEW FRONTAL and LATERAL) Clinical History: Syncope/presyncope M: XC2_4 Comparison: None RESULT: Lines, tubes, and devices: None. Lungs and pleura: No consolidation. No lung mass. No pleural effusion. Cardiomediastinal silhouette: Normal cardiomediastinal silhouette. Other: IMPRESSION: No acute radiographic abnormality. Medical Affairs Leader: LUDWIG Transcribe Date/Time: Aug 16 2024 8:24P Dictated by : CASPER RIVERA MD This examination was interpreted and the report reviewed and electronically signed by: CASPER RIVERA MD on Aug 16 2024 8:30PM EST [id number] N Normal [facility] INSULINon 09-01-2021 Insulin 4.5 uIU/mL Normal 2.6-24.9 [facility] Comment on above: Performed By: #### I NSULIN #### [facility] [address] [place] [address] Dr. Pamella Barrientos CBC AUTO DIFFon 08-31-2021 BASO # 0.1 103/ul Normal 0.0-0.1 [facility] Comment on above: Performed By: #### C BC #### [facility] [address] [place] [address] Dr. Pamella Barrientos Basophils/100 WBC (Bld) 0.8 % Normal 0.2-2.0 [facility] Comment on above: Performed By: #### C BC #### [facility] [address] [place] [address] Dr. Pamella Barrientos EO # 0.1 103/ul Normal 0.0-0.7 [facility] Comment on above: Performed By: #### C BC #### [facility] [address] [place] [address] Dr. Pamella Barrientos Eosinophils/100 WBC (Bld) 2.3 % Normal 0.9-7.0 [facility] Comment on above: Performed By: #### C BC #### [facility] [address] [place] [address] Dr. Pamella Barrientos Erythrocyte distribution width (RBC) [Ratio] 11.8 % Normal 11.0-15.0 [facility] Comment on above: Performed By: #### C BC #### [facility] [address] [place] [address] Dr. Pamella Barrientos Hematocrit (Bld) [Volume fraction] 42.7 % Normal 42.0-54.0 [facility] Comment on above: Performed By: #### C BC #### [facility] [address] [place] [address] Dr. Pamella Barrientos Hemoglobin (Bld) [Mass/Vol] 14.7 g/dL Normal 14.0-18.0 [facility] Comment on above: Performed By: #### C BC #### [facility] [address] [place] [address] Dr. Pamella Barrientos IG # 0.03 10e3/ul Normal 0.00-0.03 [facility] Comment on above: Performed By: #### C BC #### [facility] [address] [place] [address] Dr. Pamella Barrientos IG % 0.5 % Normal 0.0-0.5 [facility] Comment on above: Performed By: #### C BC #### [facility] [address] [place] [address] Dr. Pamella Barrientos LYMPH # 2.1 103/ul Normal 1.2-3.8 [facility] Comment on above: Performed By: #### C BC #### [facility] [address] [place] [address] [address] Pamella Barrientos Lymphocytes/100 WBC (Bld) 34.1 % Normal 20.5-60.0 [facility] Comment on above: Performed By: #### C BC #### [facility] [address] [place] [address] Dr. Pamella Barrientos MANUAL DIFF REQ NO Normal [facility] Comment on above: Performed By: #### C BC #### [facility] [address] [place] [address] Dr. Pamella Barrientos MCH (RBC) [Entitic mass] 30.7 pg Normal 25.9-34.0 [facility] Comment on above: Performed By: #### C BC #### [facility] [address] [place] [address] Dr. Pamella Barrientos MCHC (RBC) [Mass/Vol] 34.4 g/dL Normal 29.9-35.2 [facility] Comment on above: Performed By: #### C BC #### [facility] [address] [place] [address] Dr. Pamella Barrientos MCV (RBC) [Entitic vol] 89.1 fL Normal 80.0-94.0 [facility] Comment on above: Performed By: #### C BC #### [facility] [address] [place] [address] Dr. Pamella Barrientos MONO # 0.5 103/ul Normal 0.3-0.8 [facility] Comment on above: Performed By: #### C BC #### [facility] [address] [place] [address] Dr. Pamella Barrientos Monocytes/100 WBC (Bld) 8.3 % Normal 1.7-12.0 [facility] Comment on above: Performed By: #### C BC #### [facility] [address] [place] [address] [address] Pamella Barrientos NEUT # 3.2 103/ul Normal 1.4-6.5 [facility] Comment on above: Performed By: #### C BC #### [facility] [address] [place] [address] [address] Pamella Barrientos Neutrophils/100 WBC (Bld) 54.0 % Normal 43.0-75.0 [facility] Comment on above: Performed By: #### C BC #### [facility] [address] [place] [address] [address] Pamella Barrientos Platelet mean volume (Bld) [Entitic vol] 9.4 fL Critically low 9.5-13.5 [facility] Comment on above: Performed By: #### C BC #### [facility] [address] [place] [address] [address] Pamella Barrientos PLT 180 103/ul Normal 150-450 [facility] Comment on above: Performed By: #### C BC #### [facility] [address] [place] [address] Dr. Pamella Barrientos RBC 4.79 106/ul Normal 4.70-6.10 [facility] Comment on above: Performed By: #### C BC #### [facility] [address] [place] [address] Dr. Pamella Barrientos WBC 6.0 103/ul Normal 4.0-11.0 [facility] Comment on above: Performed By: #### C BC #### [facility] [address] [place] [address] Dr. Pamella Barrientos GLYCOHEMOGLOBIN A1Con 2021 ADA RECOMMENDATION SEE BELOW Normal [facility] Comment on above: Result Comment: ADA RECOMMENDED LIMIT 4.0 - 6.0 ADA THERAPEUTIC TARGET < 7.0 ACTION SUGGESTED > 7.0 Performed By: #### A 1C #### [facility] [address] [place] [address] Dr. Pamella Barrientos Glucose [Mass/Vol] 108 mg/dL Normal [facility] Comment on above: Performed By: #### A 1C #### [facility] [address] [place] [address] [address] Pamella Barrientos HbA1c (Bld) [Mass fraction] 5.4 % Normal 4.5-6.2 [facility] Comment on above: Performed By: #### A 1C #### [facility] [address] [place] [address] [address] Pamella Barrientos LIPID PROFILEon 08-31-2021 CHOL-HDL RATIO NORM SEE BELOW Normal [facility] Comment on above: Result Comment: 3.3 - 4.4 LOW RISK 4.4 - 7.1 AVERAGE RISK 7.1 - 11.0 MODERATE RISK >11.0 HIGH RISK Performed By: #### L IPID, CMP #### [facility] [address] [place] [address] [address] Pamella Barrientos Cholesterol [Mass/Vol] 166 mg/dL Normal <=200 [facility] Comment on above: Performed By: #### L IPID, CMP #### [facility] [address] [place] [address] [address] Pamella Barrientos Cholesterol in HDL [Mass/Vol] 83 mg/dL Critically high 40-60 [facility] Comment on above: Performed By: #### L IPID, CMP #### [facility] [address] [place] [address] [address] Pamella Barrientos Cholesterol in LDL [Mass/Vol] 74.4 mg/dL Normal [facility] Comment on above: Performed By: #### L IPID, CMP #### [facility] [address] [place] [address] [address] Pamella Barrientos Cholesterol.total/Ch olesterol in HDL [Mass ratio] 2.0 {ratio} Normal [facility] Comment on above: Performed By: #### L IPID, CMP #### [facility] [address] [place] [address] Dr. Pamella Barrientos HDL NORMAL > or = 60 mg/dl - LO W CARDIOVASCULAR RISK <40 mg/dl - HIGH CARDIOVASCULAR RISK Normal [facility] Comment on above: Performed By: #### L IPID, CMP #### [facility] [address] [place] [address] Dr. Pamella Barrientos LDL CALC NORMAL SEE BELOW Normal [facility] Comment on above: Result Comment: <100 mg/dl OPTIMAL 100 - 129 mg/dl NEAR OR ABOVE OPTIMAL 130 - 159 mg/dl BORDERLINE HIGH 160 - 189 mg/dl HIGH >190 mg/dl VERY HIGH Performed By: #### L IPID, CMP #### [facility] [address] [place] [address] [address] Pamella Barrientos Triglyceride [Mass/Vol] 43 mg/dL Normal <=150 [facility] Comment on above: Performed By: #### L IPID, CMP #### [facility] [address] [place] [address] [address] Pamella Barrientos VLDL CALC 8.6 mg/dL Normal [facility] Comment on above: Performed By: #### L IPID, CMP #### [facility] [address] [place] [address] Dr. Pamella Barrientos PROF 14(COMP METB)on 022 Albumin [Mass/Vol] 4.0 g/dL Normal 3.4-5.0 [facility] Comment on above: Performed By: #### L IPID, CMP #### [facility] [address] [place] [address] [address] Pamella Barrientos Albumin/Globulin [Mass ratio] 1.3 {ratio} Normal [facility] Comment on above: Performed By: #### L IPID, CMP #### [facility] [address] [place] [address] [address] Pamella Barrientos ALP [Catalytic activity/Vol] 60 U/L Normal 46-116 [facility] Comment on above: Performed By: #### L IPID, CMP #### [facility] [address] [place] [address] [address] Pamella Barrientos ALT [Catalytic activity/Vol] 38 U/L Normal 16-63 [facility] Comment on above: Performed By: #### L IPID, CMP #### [facility] [address] [place] [address] [address] Pamella Barrientos Anion gap [Moles/Vol] 12.8 mmol/L Normal [facility] Comment on above: Performed By: #### L IPID, CMP #### [facility] [address] [place] [address] [address] Pamella Barrientos AST [Catalytic activity/Vol] 20 U/L Normal 15-37 [facility] Comment on above: Performed By: #### L IPID, CMP #### [facility] [address] [place] [address] Dr. Pamella Barrientos Bilirubin [Mass/Vol] 0.7 mg/dL Normal 0.2-1.0 [facility] Comment on above: Performed By: #### L IPID, CMP #### [facility] [address] [place] [address] Dr. Pamella Barrientos Calcium [Mass/Vol] 8.8 mg/dL Normal 8.5-10.1 [facility] Comment on above: Performed By: #### L IPID, CMP #### [facility] [address] [place] [address] Dr. Pamella Barrientos Chloride [Moles/Vol] 102 mmol/L Normal 98-107 [facility] Comment on above: Performed By: #### L IPID, CMP #### [facility] [address] [place] [address] Dr. Pamella Barrientos CO2 [Moles/Vol] 26.6 mmol/L Normal 21.0-32.0 [facility] Comment on above: Performed By: #### L IPID, CMP #### [facility] [address] [place] [address] Dr. Pamella Barrientos Creatinine [Mass/Vol] 0.97 mg/dL Normal 0.70-1.30 [facility] Comment on above: Performed By: #### L IPID, CMP #### [facility] [address] [place] [address] Dr. Pamella Barrientos EGFR-AF ISRAELI >60 Normal >=60 [facility] Comment on above: Performed By: #### L IPID, CMP #### [facility] [address] [place] [address] Dr. Pamella Barrientos EGFR-NON AF ISRAELI >60 Normal >=60 [facility] Comment on above: Performed By: #### L IPID, CMP #### [facility] [address] [place] [address] [address] Pamella Barrientos Globulin (S) [Mass/Vol] 3.1 g/dL Normal [facility] Comment on above: Performed By: #### L IPID, CMP #### [facility] [address] [place] [address] [address] Pamella Barrientos Glucose [Mass/Vol] 98 mg/dL Normal 74-106 [facility] Comment on above: Performed By: #### L IPID, CMP #### [facility] [address] [place] [address] [address] Pamella Barrientos Potassium [Moles/Vol] 4.4 mmol/L Normal 3.5-5.1 [facility] Comment on above: Performed By: #### L IPID, CMP #### [facility] [address] [place] [address] Dr. Pamella Barrientos Protein [Mass/Vol] 7.1 g/dL Normal 6.4-8.2 [facility] Comment on above: Performed By: #### L IPID, CMP #### [facility] [address] [place] [address] [address] Pamella Barrientos Sodium [Moles/Vol] 137 mmol/L Normal 136-145 [facility] Comment on above: Performed By: #### L IPID, CMP #### [facility] [address] [place] [address] [address] Pamella Barrientos Urea nitrogen [Mass/Vol] 20.0 mg/dL Critically high 7.0-18.0 [facility] Comment on above: Performed By: #### L IPID, CMP #### [facility] [address] [place] [address] Dr. Pamella Barrientos Urea nitrogen/Creatinine [Mass ratio] 20.6 mg/mg Normal [facility] Comment on above: Performed By: #### L IPID, CMP #### [facility] [address] [place] [address] Dr. Pamella Barrientos XR WRIST LT MIN [...] of the fingers. Electronically authenticated by: ADITI TORRE Date: 2021-04-26 14:24 Normal [facility] [id number] 02-24-2020 SARS-CoV-2 Not Detected Normal Not Detected [facility] Comment on above: Result Comment: (NOT E) This nucleic acid amplification test was developed and its performance characteristics determined by [employer]. Nucleic acid amplification tests include PCR and [...] detected) result in this assay. Performed At: [facility] [address] [facility] [place] [id number] Seamus Garcia MD Ph:[phone] Performed By: #### A COV #### [facility] [address] [place], [place] [id number] Pyrometer Mechanic: Farzad Soto MD MRI Shoulder w/o Contrast Ak yeny 02-25-2019 MRI Shoulder w/o Contrast Right [...] with no paralabral cyst. Final Dictated by: Mckenzie Hadley MD Dictated DT/TM: 02/25/2019 7:16 am Signed by: Mckenzie Hadley MD Signed (Electronic Signature): 02/25/2019 7:55 am Transcribed DT/TM: 02/25/2019 7:51 (If Report Is Signed, Electronically Signed in Other Vendor System) Normal [facility] Encounters Encounter Date Encounter Type Care Provider Facility Start: 08-21-2024 End: 08-22-2024 Evaluation and management of inpatient SEAMUS GAGE Facility:[facility] Start: 08-16-2024 End: 08-17-2024 Emergency department patient visit MCKENZIE BRYAN Facility:[facility] Start: 09-06-2021 Encounter for genera l adult medical examination without abnormal findings DR SEAMUS GAGE [facility] Start: 08-31-2021 End: 09-01-[address] SEAMUS GAGE Facility:[facility] Start: 08-31-2021 End: 09-01-2021 Encounter for general adult medical examination without abnormal findings DR SEAMUS GAGE Facility:[facility] Start: 04-26-2021 End: 04-27-[address] SEAMUS GAGE Facility:[facility] Start: 02-21-2020 End: 02-22-2020 Patient encounter procedure SEAMUS GAGE [facility] Start: 02-21-2020 End: 02-21-2020 Subsequent hospital visit by physician Rey Alcalaid Screening Schedule [facility] Covid Screening Comment on above: Arrived Start: 02-24-2019 End: 02-25-2019 Patient encounter procedure Vipul Meredithan Facility:[facility] Procedures Date Procedure Procedure Detail Performing Clinician Start: 08-31-[address] BESSIE GAGE Comment on above: Performed By: #### P [facility] #### [facility] [address] [address] [address] Pamella Barrientos Start: 02-21-2020 COVID-19 AMBULATORY SCOTT GAGE Plan of Treatment Date Care Activity Detail Author Start: 12-14-2019 Influenza vaccination Flu vaccine (# 1) [place], [place] Start: 2016 Screening for malign ant neoplasm of colon Colon cancer screen colonoscopy [place], [place] Start: 2016 Shingles Vaccine (1 of 2) Shingles Vaccine (1 of 2) [place] Start: 2006 Lipid panel Lipid screen [place], [place] Start: 1985 DTaP/Tdap/Td vaccine (1 - Tdap) DTaP/Tdap/Td vaccine (1 - Tdap) [place] Start: 1981 HIV screening HIV screen [place], [place] End: 02-21-2020 Covid-19 Ambulatory Covid-19 Ambulatory Lab Routine Once for 1 Occurrences starting 02/21/2020 until 02/21/2020 [place] Comment on above: Once for 1 Occurrenc es starting 02/21/2020 until 02/21/2020 Covid-19 Ambulatory Covid-19 Amb ulatory Lab Routine 02/21/2020 3:32 PM EST [place] Payers Date Payer Category Payer Unknown [id number] 2019 Private Health Insurance 2014 Private Health Insurance [id number] 1966 Unknown [id number] 1966 Unknown [id number] 1966 Unknown [id number] 1966 Unknown [id number] 1959 Unknown [id number] Social History Date Type Detail Facility Tobacco smoking status NHIS Unknown if ev er smoked [place] Sex Assigned At Not on file [place] Plan of care note 08-22-2024 Note Date & Type Note Facility 08-22-2024 Note HNO ID: [id number] Author: EARNEST IBARRA, Damaso Service: Pharmacy Author Type: Document Management Analyst Type: Plan of Care Filed: 08/22/2024 17:24 Note Text: Insurance investigation completed Patient has active prescription insurance: Yes - Patient's insurance is in-network with [facility] Insurance loaded into [facility]: Yes Test claim was completed to verify insurance is active: Successful Any questions, please reach out to your medication travel coordinator. [facility] Clinical Note 08-16-2024 Note Date & Type Note Facility 08-16-2024 Note SARS-COV-2 (AGENT OF COVID-19) RNA: Not detected INFLUENZA A RNA: Not detected INFLUENZA B RNA: Not detected RESPIRATORY SYNCYTIAL VIRUS (RSV) RNA: Not detected [facility] Comment on above: Performed By: #### 9 [id number] ####[facility]CL[facility] [id number] [place] [address] [place] Summary Purpose Family History No Family History Records FoundNo Family History Records FoundNo Family History Records FoundNo Family History Records Found Advance Directives No Advanced Directives Records FoundNo Advanced Directives Records FoundNo Advanced Directives Records FoundNo Advanced Directives Records Found Additional Source Comments (unrecognized sect ion and content) No Status Records FoundNo Status Records FoundNo Status Records FoundNo Status Records Found INFORMATION SOURCE (unrecogn ized section and content) DATE CREATED AUTHOR 02/25/2019 [facility] DATE CREATED AUTHOR AUTHOR'S ORGANIZ ATION 02/24/2020 [facility] DATE CREATED AUTHOR AUTHOR'S ORGANIZ ATION 09/07/2021 [facility] DATE CREATED AUTHOR AUTHOR'S ORGANALEJO ATION 08/22/2024 [facility] FOR RECORDS PERTAINING TO PATIENTS WHO ARE [...] BE BASED ON THE PRIMARY CLINICAL RECORDS. [facility]. provides no warranty or guarantee of the accuracy or completeness of information in this document.
--- NOTE | 2024-08-23 08:56 | ED.GENADUL1 ---
HPI HPI - General Adult General Chief complaint: Weakness Stated complaint: ALL OVER BODY PAIN, NUMBNESS IN FEET, HANDS AND GE Time Seen by Provider: 08/23/24 08:28 Source: patient Mode of arrival: walk-in Limitations: no limitations History of Present Illness HPI narrative: 59-year-old male presents to the emergency department for pain all over his body. He has been having this for more than a week. He was seen in the [facility] emergency department twice in the past week including yesterday. He had an MRI that he states was negative and he was diagnosed with myalgia secondary to a viral illness. 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 He states his whole body hurts and because of the pain he cannot walk. He is not unable to walk because of weakness. He was prescribed gabapentin and magnesium. He also saw his family doctor 3 times for the same issue last week. Related Data Home Medications ?Medication ?Instructions ?Recorded ?Confirmed gabapentin 300 mg capsule 300 mg PO Q12H 08/23/24 08/23/24 Previous Rx's ?Medication ?Instructions ?Recorded hydrocodone 5 mg-acetaminophen 325 1 tab PO Q6H PRN pain 5 days #20 08/23/24 mg tablet tabs Allergies Allergy/AdvReac Type Severity Reaction Status Date / Time Penicillins Allergy Anaphylaxis Verified 08/23/24 08:31 Opioid HPI Opioid Management Most Recent Opioid Data: Last Pain Scale 8 Today, 08:41 Review of Systems ROS Narrative A ten point review of systems is negative except as noted above. PFSH PFSH Social History Little interest or pleasure in doing things: not at all Feeling down, depressed, or hopeless: not at all Exam Narrative Exam Narrative: Nurses note and vital signs reviewed and patient is not hypoxic. General: The patient appears well and in no apparent distress. Patient is resting comfortably on cart. Skin: Warm, dry, no pallor noted. There is no rash noted. No bruise or rash or petechia present Head: Normocephalic, atraumatic Eye: Normal conjunctiva, no drainage Ears, Nose, Mouth, and Throat: oral mucosa is moist. Nares patent. Cardiovascular: Regular Rate and Rhythm Respiratory: Patient is in no distress, no accessory muscle use, lungs are clear to auscultation, no wheezing, rales or rhonchi Back: non-tender, no CVA tenderness bilaterally to percussion. GI: Normal bowel sounds, no tenderness to palpation, no masses appreciated. No rebound, guarding, or rigidity noted. Musculoskeletal: The patient has no evidence of calf tenderness, no pitting edema, symmetrical pulses noted bilaterally. No muscle wasting. Neurological: A&O x4, normal speech; upper and lower extremity strength is 5 out of 5 and symmetric in all muscle groups. This includes plantar and dorsiflexion of his feet. Hand grasp is symmetric and 5 out of 5. Psychiatric: Cooperative Constitutional Vital Signs, click to edit/add: Last Vital Signs Temp 97.5 F L 08/23/24 08:32 Pulse 64 08/23/24 11:50 Resp 18 08/23/24 11:50 BP 148/93 H 08/23/24 11:50 Pulse Ox 96 08/23/24 11:50 O2 Del Method Room Air 08/23/24 08:32 Course Vital Signs Vital signs: Vital Signs Temperature 97.5 F L 08/23/24 08:32 Pulse Rate 55 L 08/23/24 08:32 Blood Pressure 189/101 H 08/23/24 08:32 Pulse Oximetry 99 08/23/24 08:32 Oxygen Delivery Method Room Air 08/23/24 08:32 Temperature 97.5 F L 08/23/24 08:32 Pulse Rate 64 08/23/24 11:50 Respiratory Rate 18 08/23/24 11:50 Blood Pressure 148/93 H 08/23/24 11:50 Pulse Oximetry 96 08/23/24 11:50 Oxygen Delivery Method Room Air 08/23/24 08:32 Medical Decision Making MDM Narrative Medical decision making narrative: His workup here is negative and his MRIs from [facility] are negative per his PCP. I spoke to Dr. Gage who is arranging for the patient to see a neurologist for evaluation of Guillain-Lockhart? and potential lumbar puncture. Treatment diagnosis and follow-up were discussed with the patient. Differential Diagnosis Differential Diagnosis: Guillain-Lockhart?, myalgia, dehydration Lab Data Lab results reviewed: Yes I reviewed the patient's lab results Labs: Lab Results 08/23/24 Range/Units 09:09 WBC 14.2 H (4.0-11.0) 10^3/uL RBC 5.24 (4.70-6.10) 10^6/uL Hgb 16.8 (14.0-18.0) g/dL Hct 46.0 (42.0-54.0) % MCV 87.8 (80.0-94.0) fL MCH 32.1 (25.9-34.0) pg MCHC 36.5 H (29.9-35.2) g/dL RDW 11.9 (11.0-15.0) % Plt Count 260 (150-450) 10^3/uL MPV 9.6 (9.5-13.5) fL Neut % (Auto) 73.0 (43.0-75.0) % Lymph % (Auto) 16.9 L (20.5-60.0) % [facility] % (Auto) 8.5 (1.7-12.0) % Eos % (Auto) 0.2 L (0.9-7.0) % Baso % (Auto) 0.2 (0.2-2.0) % Neut # (Auto) 10.4 H (1.4-6.5) 10^3/uL Lymph # (Auto) 2.4 (1.2-3.8) 10^3/uL [facility] # (Auto) 1.2 H (0.3-0.8) 10^3/uL Eos # (Auto) 0.0 (0.0-0.7) 10^3/uL Baso # (Auto) 0.0 (0.0-0.1) 10^3/uL Abs Immat Gran (auto) 0.17 H (0.00-0.03) 10^3/uL Imm/Tot Granulo (auto) 1.2 H (0.0-0.5) % Sodium 134 L (136-145) mmol/L Potassium 3.9 (3.5-5.1) mmol/L Chloride 100 (98-107) mmol/L Carbon Dioxide 29.3 (21.0-32.0) mmol/L Anion Gap 8.6 BUN 27.0 H (7.0-18.0) mg/dL Creatinine 0.93 (0.70-1.30) mg/dL Est GFR ( Amer) >60 (>=60 mL/min/1.73m^2) Est GFR (Non-Af Amer) >60 (>=60 mL/min/1.73m^2) BUN/Creatinine Ratio 29.0 Glucose 102 (74-106) mg/dL Calcium 8.8 (8.5-10.1) mg/dL Magnesium 2.2 (1.8-2.4) mg/dL Discharge Plan Discharge Chief Complaint: Weakness Clinical Impression: Myalgia Patient Disposition: Home, Self-Care Time of Disposition Decision: 12:31 Condition: Good Mode of Transportation: Private Vehicle Prescriptions / Home Meds: New hydrocodone-acetaminophen 5-325 mg tablet 1 tab PO Q6H PRN (Reason: pain) 5 Days Qty: 20 0RF No Action gabapentin 300 mg capsule 300 mg PO Q12H Print Language: Slovak Instructions: Musculoskeletal Pain (ED) Additional Instructions: Follow-up with your Pk. He is arranging for you to see a neurologist. Referrals: Terry Gage MD [Primary Care Provider, Family Practice] - 1 week
[2024-08-23] MEDS: 0.9 % SODIUM CHLORIDE 1,000 ML 1000 ML IV (09:18)
[2024-08-23] MEDS: MORPHINE SULFATE 4 MG/ML VIAL IV (09:19)
[2024-08-23 09:24] VITALS: BP 151/93; PULSE 57; O2SAT 98
[2024-08-23 09:26] LABS: Basophils Percent Auto 0.2 % (0.2-2.0); Eosinophils Percent Auto 0.2 % (0.9-7.0); Hemoglobin 16.8 g/dL (14.0-18.0); Immature Granulocytes Abs Auto 0.17 10^3/uL (0.00-0.03); Immature Granulocytes Pct Auto 1.2 % (0.0-0.5); Lymphocytes Absolute Auto 2.4 10^3/uL (1.2-3.8); Lymphocytes Percent Auto 16.9 % (20.5-60.0); Mean Corpuscular HGB Conc 36.5 g/dL (29.9-35.2); Mean Corpuscular Hemoglobin 32.1 pg (25.9-34.0); Mean Corpuscular Volume 87.8 fL (80.0-94.0); Mean Platelet Volume 9.6 fL (9.5-13.5); Monocytes Absolute Auto 1.2 10^3/uL (0.3-0.8); Monocytes Percent Auto 8.5 % (1.7-12.0); Neutrophils Absolute Auto 10.4 10^3/uL (1.4-6.5); Platelet Count 260 10^3/uL (150-450); Red Blood Count 5.24 10^6/uL (4.70-6.10); Red Cell Distribution Width 11.9 % (11.0-15.0); White Blood Count 14.2 10^3/uL (4.0-11.0)
[2024-08-23 09:31] LABS: Anion Gap 8.6; Calcium 8.8 mg/dL (8.5-10.1); Carbon Dioxide 29.3 mmol/L (21.0-32.0); Chloride 100 mmol/L (98-107); Estimated GFR (African America >60 (>=60 mL/min/1.73m^2); Estimated GFR (Non-African Ame >60 (>=60 mL/min/1.73m^2); Glucose 102 mg/dL (74-106); Magnesium 2.2 mg/dL (1.8-2.4); Potassium 3.9 mmol/L (3.5-5.1); Sodium 134 mmol/L (136-145)
[2024-08-23 11:50] VITALS: BP 148/93; PULSE 64; O2SAT 96
== END 2024-08-23 12:50 | disposition home or self-care (01) ==
PROVIDERS: Emergency Provider Emergency Medicine; PCP Family Medicine
DX: M79.10 Myalgia, unspecified site (principal); R52 Pain, unspecified
CPT/HCPCS: 36415; 80048; 83735; 85025; 96374; 99284; J2270

== ENCOUNTER 2024-09-02 14:31 | Outpatient (RCR) | payer OTHER, SELFPAY | END 2024-09-12 15:09 | disposition home or self-care (01) | LOC: PT 14:31 | PROVIDERS: PCP Family Medicine; Visit Provider Family Medicine | DX: M79.10 Myalgia, unspecified site (principal); R27.8 Other lack of coordination | CPT/HCPCS: 97110; 97112; 97161; 97530 ==